=== PATIENT | female | born 1950 | race Hispanic/Latino ===

== ENCOUNTER → 2018-06-17 | Day surgery (SDC) | payer MEDICARE ==
[2018-06-16 12:04] LABS: BASOPHILS # (AUTO) 0.1 (0.0-0.1); BASOPHILS % 0.6 % (0.0-1.0); EOSINOPHILS # (AUTO) 0.1 (0.0-0.4); EOSINOPHILS % 0.7 % (0.0-6.0); HEMATOCRIT 31.2 % (34.2-44.1); HEMOGLOBIN 9.8 g/dL (12.0-16.0); LYMPHOCYTES # (AUTO) 1.1 (1.0-3.2); LYMPHOCYTES % 13.5 % (18.0-39.1); MEAN CORPUSCULAR HEMOGLOBIN 29.8 pg (28-32); MEAN CORPUSCULAR HGB CONC 31.4 g/dL (31-35); MEAN CORPUSCULAR VOLUME 94.8 fL (81-99); MONOCYTES # (AUTO) 1.1 (0.2-0.8); MONOCYTES % 12.5 % (4.4-11.3); NEUTROPHILS # (AUTO) 6.1 (2.1-6.9); NEUTROPHILS % 72.1 % (38.7-80.0); PLATELET COUNT 521 x10e3/uL (140-360); RED BLOOD COUNT 3.29 x10e6/uL (3.6-5.1); RED CELL DISTRIBUTION WIDTH 14.8 % (11.7-14.4)
[2018-06-16 12:20] LABS: INR 1.13; PROTHROMBIN TIME 13.6 seconds (11.9-14.5)
[2018-06-16 12:27] LABS: ALANINE AMINOTRANSFERASE < 6 IU/L (0-55); ALBUMIN 2.5 g/dL (3.5-5.0); ALBUMIN/GLOBULIN RATIO 0.6 (0.8-2.0); ALKALINE PHOSPHATASE 85 IU/L (40-150); ANION GAP 12.6 mmol/L (8-16); BLOOD UREA NITROGEN 11 mg/dL (7-26); BUN/CREATININE RATIO 4 (6-25); CALCIUM 9.6 mg/dL (8.4-10.2); CARBON DIOXIDE 34 mmol/L (22-29); CHLORIDE 95 mmol/L (98-107); CREATININE, SERUM 2.71 mg/dL (0.57-1.11); EST GLOMERULAR FILTRATION RATE 18 ML/MIN (60-); GLUCOSE 122 mg/dL (74-118); POTASSIUM 3.6 mmol/L (3.5-5.1); SODIUM 138 mmol/L (136-145)
[~2018-06-17] VITALS: Ht 142.2 cm; Wt 74.4 kg
[~2018-06-17] MED LIST: ACETAMINOPHEN PO; ASPIRIN81 MG PO; ATORVASTATIN CA20 MG PO; BENZOCAINE 20% SPR 60 ML CAN ONE; CEFUROXIME250 MG PO; FENTANYL CITRATE/PF 100MCG/2 ML INJ ONE; LABETALOL HCL100 MG PO; LABETALOL HCL200 MG PO; MIDAZOLAM HCL 2 MG/2 ML VIAL ONE; PREDNISONE20 MG PO; PROPOFOL IV EMULSION 10 MG/ML 20 ML VIAL IV ONE; SODIUM CHLORIDE 0.9% 1000ML 1,000 ML ONE; TRAMADOL PO; ZOFRAN ODT4 MG PO
[2018-06-17 11:30] VITALS: BP 171/120
[2018-06-17 15:30] VITALS: BP 160/83
== END | disposition home or self-care (01) ==
LOC: CATH LAB 11:04
PROVIDERS: ATTEND Internal Medicine
DX: I35.2 Nonrheumatic aortic (valve) stenosis with insufficiency (principal); I31.3 Pericardial effusion (noninflammatory); J45.909 Unspecified asthma, uncomplicated; I13.2 Hypertensive heart and chronic kidney disease with heart failure and with stage 5 chronic kidney disease, or end stage renal disease; N18.6 End stage renal disease; I50.9 Heart failure, unspecified; E66.01 Morbid (severe) obesity due to excess calories; Z01.812 Encounter for preprocedural laboratory examination; Z88.6 Allergy status to analgesic agent; Z79.82 Long term (current) use of aspirin; Z99.2 Dependence on renal dialysis; Z68.31 Body mass index [BMI] 31.0-31.9, adult; Z93.3 Colostomy status; Z82.49 Family history of ischemic heart disease and other diseases of the circulatory system
CPT/HCPCS: 36415; 80053; 85025; 85610; 93312; 93320; 93325; J2250; J7030

== ENCOUNTER 2018-07-01 07:53 | Inpatient (IN) | payer MEDICARE ==
[~2018-07-01] VITALS: Ht 152.4 cm; Wt 78.0 kg
[~2018-07-01 07:53] MED LIST changes: -BENZOCAINE 20% SPR 60 ML CAN ONE; -FENTANYL CITRATE/PF 100MCG/2 ML INJ ONE; -MIDAZOLAM HCL 2 MG/2 ML VIAL ONE; -PROPOFOL IV EMULSION 10 MG/ML 20 ML VIAL IV ONE; -SODIUM CHLORIDE 0.9% 1000ML 1,000 ML ONE
[2018-07-01] MEDS ORDERED: PLAVIX75 MG PO (08:27)
[2018-07-01] MEDS ORDERED: TYLENOL WITH C1 EACH PO (08:27)
[2018-07-01 08:52] LABS: BASOPHILS # (AUTO) 0.1 (0.0-0.1); BASOPHILS % 0.4 % (0.0-1.0); EOSINOPHILS # (AUTO) 0.2 (0.0-0.4); EOSINOPHILS % 1.5 % (0.0-6.0); HEMATOCRIT 31.5 % (34.2-44.1); HEMOGLOBIN 9.5 g/dL (12.0-16.0); LYMPHOCYTES # (AUTO) 1.4 (1.0-3.2); LYMPHOCYTES % 9.6 % (18.0-39.1); MEAN CORPUSCULAR HEMOGLOBIN 29.3 pg (28-32); MEAN CORPUSCULAR HGB CONC 30.2 g/dL (31-35); MEAN CORPUSCULAR VOLUME 97.2 fL (81-99); MONOCYTES # (AUTO) 0.9 (0.2-0.8); MONOCYTES % 6.4 % (4.4-11.3); NEUTROPHILS # (AUTO) 11.8 (2.1-6.9); NEUTROPHILS % 81.6 % (38.7-80.0); PLATELET COUNT 213 x10e3/uL (140-360); RED BLOOD COUNT 3.24 x10e6/uL (3.6-5.1); RED CELL DISTRIBUTION WIDTH 15.6 % (11.7-14.4)
[2018-07-01] MEDS ORDERED: LORATADINE 10 MG TAB PO ONE (09:00)
[2018-07-01] MEDS ORDERED: FLUTICASONE PROPIONATE NASAL SPRAY NS ONE (09:00)
--- NOTE | 2018-07-01 09:11 | Diagnostic Imaging Report ---
PROCEDURE: Frontal and lateral views of the chest. COMPARISON: None. INDICATIONS: SHORTNESS OF BREATH FINDINGS: Lines/tubes: Right IJ tunneled hemodialysis catheter with tip overlying the right atrium. Lungs: Moderate lung volumes. Perihilar and interstitial opacity, right greater than left. Patchy opacity at the right lung base. Pleura: Moderate right and small left pleural effusion. No evidence of pneumothorax. Heart and mediastinum: Enlarged cardiomediastinal silhouette. Atherosclerotic calcifications of the aortic arch. Bones: No acute bony abnormality. IMPRESSION: Pulmonary interstitial edema with moderate right and small left pleural effusions. Patchy opacity at the right lung base, likely atelectasis. Cardiomegaly. Dictated by: NANA NG M.D. on 07/01/2018 at 9:19 Electronically approved by: ANNA NG M.D. on 07/01/2018 at 9:19
[2018-07-01 09:13] LABS: ANION GAP 18.2 mmol/L (8-16); CALCIUM 9.7 mg/dL (8.4-10.2); CREATININE, SERUM 3.91 mg/dL (0.57-1.11); POTASSIUM 4.2 mmol/L (3.5-5.1)
[2018-07-01] MEDS ORDERED: ASPIRIN 81 MG CHEW TAB PO ONE (10:30)
[2018-07-01] MEDS ORDERED: VANCOMYCIN HCL 1GM/NS 250 ML BAG IV SCH (10:30)
[2018-07-01] MEDS ORDERED: SODIUM CHLORIDE FLUSH 10 ML SYR INJ PRN (10:30)
[2018-07-01] MEDS: IPRATROPIUM BROMIDE 0.02% 2.5 ML NEB NEB SCH ×3 (11:00→19:27)
[2018-07-01] MEDS: ALBUTEROL SULF 0.083% NEB SOLN 3 ML NEB NEB SCH ×3 (11:00→19:27)
[2018-07-01] MEDS: CEFEPIME HCL 1 GM VIAL IV SCH ×2 (12:40→21:09)
[2018-07-01] MEDS: FAMOTIDINE 20 MG/2 ML VIAL IV SCH ×2 (12:41→21:09)
[2018-07-01] MEDS: VANCOMYCIN 1GM/NS 250 ML 250 ML IV SCH (12:41)
[2018-07-01 13:05] LABS: CREATINE KINASE MB 0.6 ng/mL (0-5.0)
[2018-07-01] MEDS ORDERED: ACETAMINOPHEN/CODEINE 300MG - 30MG TAB PO PRN (13:45)
[2018-07-01] MEDS ORDERED: ONDANSETRON HCL 4 MG ORAL DISINTEGRATING TAB PO PRN (13:45)
[2018-07-01] MEDS ORDERED: ENOXAPARIN SOD INJ 40 MG/0.4 ML SYR SC SCH (17:00)
[2018-07-01] MEDS: LABETALOL HCL 200 MG TAB PO SCH (17:00)
--- NOTE | 2018-07-01 17:13 | Consultation ---
DATE OF CONSULTATION: July 01, 2018 RENAL CONSULTATION Thank you, Dr. Lal for the consultation. HISTORY OF PRESENT ILLNESS: Ms. Lopez is a pleasant 67-year-old female patient of mine with end-stage renal disease on hemodialysis Friday, , and Friday at [facility] facility under my care. Patient had dialysis yesterday. Apparently, patient's blood pressure started to drop during the treatment and fluid was not able to pulled as per her will. The patient subsequently came into the emergency room today because of worsening shortness of breath. Patient on chest x-ray was found to have interstitial edema with moderate right and small left pleural effusion as well as patchy right lung opacity, which could be pneumonia. No fever, no chills, no nausea, no vomiting, no diarrhea, no abdominal pain. Besides the cough, chest congestion, and shortness of breath, she had no other specific symptoms. PAST MEDICAL HISTORY: End-stage renal disease, history of hypertension, history of congestive heart failure, history of cardiomyopathy. ALLERGIES: NO KNOWN DRUG ALLERGIES. SOCIAL HISTORY: No tobacco, no alcohol use. FAMILY HISTORY: Noncontributory. REVIEW OF SYSTEMS: As per HPI, otherwise all systems were negative. MEDICATIONS: Have been reviewed per chart. PHYSICAL EXAMINATION VITAL SIGNS: As follows: Blood pressure 149/92, pulse 104, respirations 18, and patient is saturating 94-98%. HEENT: No cervical lymphadenopathy. Neck supple without masses. No increased JVD. Moist-appearing oral mucosa. SKIN: Moist with good skin turgor. CHEST: Chest wall has good expansion. No chest wall tenderness. LUNGS: Have rales at the bases bilaterally. CARDIOVASCULAR: S1, S2. No obvious gallop, rub or murmur. ABDOMEN: Soft. Positive bowel sounds. Nontender. EXTREMITIES: 1 to 2+ edema upper and lower extremity. No clubbing, no cyanosis. NEUROLOGICAL: Awake, alert, oriented x3. Grossly nonfocal exam. LABORATORY DATA: Sodium 135, potassium 4.2, chloride 95, bicarb 26, BUN is 13, creatinine is 3.91. BNP elevated at 867. Chest x-ray report shows interstitial pulmonary edema. IMPRESSION AND PLAN 1. End-stage renal disease. Continue to provide dialysis Friday, , and Friday and we will do a short treatment today for 2 hours for ultrafiltration only. Not enough fluid was able to pulled yesterday as stated above since her blood pressure started to drop during dialysis yesterday. 2. Hypertension. Blood pressure is stable. Continue to monitor closely. 3. Anemia of chronic disease, stable. Continue to monitor closely. Thank you once again for the consultation. We will follow the patient closely along with you and make further recommendations. Job#: [id number] VAS cc:DR. SAWYER LAL
[2018-07-01 17:30] VITALS: BP 155/86
[2018-07-01 18:15] VITALS: BP 155/86
[2018-07-01 18:21] VITALS: BP 155/86
--- NOTE | 2018-07-01 19:49 | History and Physical ---
CHIEF COMPLAINT: Shortness of breath. HISTORY OF PRESENT ILLNESS: This is a 67-year-old woman who presents to the [facility] with 1 day history of worsening shortness of breath particularly with exertion. Patient states her shortness of breath seems to be worsen when she is recumbent. She has a known history of diastolic heart failure. Moreover, she has a history of end-stage renal disease and undergoes hemodialysis on Tuesdays, , and Saturdays. Patient states her last hemodialysis session was 1 day prior to this admission. In the emergency room, patient was found to have a B-type natriuretic peptide at a level of 866. Patient's BUN and creatinine were 13 and 3.91 respectively. The patient's potassium was 4.2. Patient's serum bicarbonate was 26. In the emergency room, the patient was found to have a white blood cell count of 14,400 with 81% segmented neutrophils. Patient's hemoglobin was 9.5 g/dL. Patient states that just last week she underwent successful placement of a right upper extremity AV graft. Patient states the graft is functioning, and she actually received hemodialysis successfully yesterday. The patient denies any fever, chills. Patient also denies any chest pain or tightness. In the emergency room, patient had a chest x-ray performed that revealed an enlarged cardiomediastinal silhouette with pulmonary interstitial edema and moderate right and small left pleural effusion. Moreover, the x-ray revealed patchy opacity at the right lung base which was new when compared to x-ray 3 weeks ago. Also, 2 weeks ago, on June 17, 2018, patient underwent a transesophageal echocardiogram that revealed findings consistent with a diastolic heart failure with preserved left ventricular ejection fraction of 60 to 65%. No obvious valvular vegetation was appreciated. Patient was found to have moderate aortic regurgitation with mild aortic stenosis. Patient will be admitted for further evaluation and treatment. REVIEW OF SYSTEMS GENERAL: The patient has gained 10 pounds just in the last month. Denies any fever or chills. HEENT: No headaches. No visual changes. CARDIOVASCULAR/RESPIRATORY: Has worsening shortness of breath, dyspneic particularly when recumbent. Denies any chest pain or tightness. Denies any cough. GI: No nausea or constipation. : Patient urinates only minimally since she is on hemodialysis three times a week. NEUROMUSCULAR: No limb weakness or numbness. PAST MEDICAL HISTORY 1. End-stage renal disease since August 2013. 2. Malignant hypertensive heart disease. 3. Hypertension. 4. Obesity, BMI 33. 5. Anemia secondary to chronic kidney disease. 6. Chronic diastolic congestive heart failure. 7. Right retinal hemorrhage. SURGICAL HISTORY 1. Right upper extremity AV graft placement last week. 2. section 5 times. 3. Left upper extremity AV fistula placement. 4. Right subclavian hemodialysis catheter placement and subsequent removal. 5. Open cholecystectomy. 6. Total abdominal hysterectomy with bilateral salpingo-oophorectomy. 7. Sigmoid resection with diverting colostomy placement in April 2018. SOCIAL HISTORY: This woman is and disabled. Patient lives with her adult son and [id number]. No history of tobacco or alcohol use. ALLERGIES: NO KNOWN DRUG ALLERGIES. FAMILY HISTORY: Mother with hypertension. Father with type 2 diabetes mellitus. HOME MEDICATIONS 1. Ondansetron 8 mg b.i.d. p.r.n. nausea. 2. Atorvastatin 20 mg q.h.s. 3. Tramadol/acetaminophen 37.5/325 one every 6 hours for pain. 4. Labetalol 100 mg b.i.d. 5. Aspirin 81 mg a day. 6. Clopidogrel 75 mg a day. 7. Flonase 2 sprays each nostril daily. PHYSICAL EXAMINATION GENERAL: She is awake, alert, and fully oriented. She is pleasant. She does not appear to be in any respiratory distress. VITALS: Height is 5 feet 0 inches, weight 173 pounds. BMI is 33. Blood pressure 129/73, pulse is 92, respiratory rate is 22, oxygen saturation currently is 100% on 3 L of oxygen via nasal cannula, temperature 98.9. INTEGUMENT: Skin is warm and dry. No pallor or jaundice. HEENT: Anicteric sclerae. Moist mucous membranes. NECK: Supple. No evidence of jugular venous distention. CARDIOVASCULAR: Distant heart sounds. Regular rate and rhythm with a faint systolic ejection murmur. LUNGS: Diminished breath sounds at bilateral bases. ABDOMEN: Obese. EXTREMITIES: Patient has ecchymosis in the right upper arm consistent with a recent AV graft placement. NEUROLOGIC: Intact. No gross focal deficits appreciated. IMPRESSION 1. Ittfs-xg-kjiiojk diastolic congestive heart failure. 2. End-stage renal disease. 3. Right-sided pneumonia, likely. 4. Hypertensive heart disease. 5. Obesity, BMI of 33. 6. Anemia secondary to chronic disease/chronic kidney disease. PLAN 1. Blood cultures. 2. Intravenous antibiotics. 3. Repeat chest x-ray in the morning. 4. Consult nephrology since patient most likely needs hemodialysis today. 5. Consult cardiology since she has acute congestive heart failure. I spent 40 minutes in the care of the patient. Job#: [id number] LPA MTDElsi
[2018-07-01 20:00] VITALS: BP 180/90
--- NOTE | 2018-07-01 20:09 | Consultation ---
DATE OF CONSULTATION: July 01, 2018 CARDIOLOGY CONSULTATION REASON FOR CONSULTATION: Shortness of breath. HISTORY OF PRESENT ILLNESS: This is a 67-year-old woman with hypertension, end-stage renal disease, on hemodialysis, moderate aortic regurgitation and mild aortic stenosis with dilation of the ascending aorta and moderate generalized pericardial effusion, who presents with complaints of shortness of breath. The patient endorses shortness of breath beginning yesterday. She also described symptoms suggestive of orthopnea and PND overnight. She otherwise denies any chest pain, palpitations or edema. The patient presented to [facility] ER due to her shortness of breath. She had dialysis yesterday, but due to hypotension was unable to tolerate the full session, and did not get her full volume removal. Chest x-ray in the ER revealed pulmonary interstitial edema with moderate right and small left pleural effusions, patchy opacity at the right lung base, likely atelectasis and cardiomegaly were noted. REVIEW OF SYSTEMS: Negative except as per HPI. PAST MEDICAL HISTORY: End-stage renal disease, on hemodialysis, hypertension, moderate aortic regurgitation with mild aortic stenosis, small generalized pericardial effusion, dilated ascending aorta, history of sigmoid diverticulitis, and pancolitis complicated by perforation with sigmoid resection and colostomy. PAST SURGICAL HISTORY: Cholecystectomy, section times 5, hysterectomy, sigmoid resection and end-colostomy. ALLERGIES: NO KNOWN DRUG ALLERGIES. MEDICATIONS: Please see EMR. SOCIAL HISTORY: Smoked a pack a day since the age of 16, but quit in 2018. No alcohol or drugs. FAMILY HISTORY: Noncontributory to current illness. PHYSICAL EXAMINATION VITALS: Temperature 98.3 degrees, pulse 104, respiratory rate 18, blood pressure 149/92, oxygen saturation 98%. GENERAL: Obese woman in no acute distress. HEENT: Normocephalic and atraumatic. Pupils equal. No scleral icterus. NECK: Supple. No thyromegaly or cervical lymphadenopathy. No carotid bruits. LUNGS: Decreased breath sounds at the bases, otherwise clear to auscultation. No wheezes or crackles. CARDIOVASCULAR: Normal rate and regular rhythm. A 2/6 diastolic murmur is appreciated. ABDOMEN: Soft and nontender. EXTREMITIES: No edema. NEURO: Nonfocal exam. LABS: WBC 14.43, hemoglobin 9.5, hematocrit 31.5, and platelets 213,000. Sodium 135, potassium 4.2, chloride 95, CO2 26, BUN 13, creatinine 3.91. BNP 867. Troponin 0.51. IMPRESSION 1. Suspected pneumonia. 2. Volume overload. 3. End-stage renal disease, on hemodialysis. 4. Moderate aortic stenosis with mild aortic regurgitation: Preserved left ventricular systolic function with impaired left ventricular relaxation. 5. Moderate generalized pericardial effusion. 6. Dilated ascending aorta. 7. Hypertension. 8. History of sigmoid diverticulitis and pancolitis complicated by perforation with sigmoid resection and end-colostomy. RECOMMENDATIONS: Echocardiogram to re-evaluate pericardial effusion. Antibiotics per primary service. Volume removal per nephrology given hemodialysis. Continue current cardiac medications. The patient's blood cultures are pending. Once the patient has recovered, would benefit from CT of the chest for further evaluation of her ascending aorta. Thank you for this consult. We will continue to follow. Job#: [id number] BHAVIN PURCELL
[2018-07-01] MEDS: ATORVASTATIN 20 MG TAB PO SCH (21:09)
[2018-07-01 21:56] LABS: CREATINE KINASE MB 0.6 ng/mL (0-5.0)
[2018-07-01] MEDS ORDERED: SODIUM CHLORIDE 0.9% 1000ML 1,000 ML ONE (22:48)
[2018-07-02] VITALS (7 sets, daily range): BP systolic 103–150; BP diastolic 56–87
[2018-07-02] MEDS: IPRATROPIUM BROMIDE 0.02% 2.5 ML NEB NEB SCH ×4 (01:45→19:30)
[2018-07-02] MEDS: ALBUTEROL SULF 0.083% NEB SOLN 3 ML NEB NEB SCH ×4 (01:45→19:30)
[2018-07-02 05:26] LABS: BASOPHILS # (AUTO) 0.1 (0.0-0.1); BASOPHILS % 0.3 % (0.0-1.0); EOSINOPHILS # (AUTO) 0.2 (0.0-0.4); EOSINOPHILS % 1.3 % (0.0-6.0); HEMATOCRIT 29.5 % (34.2-44.1); LYMPHOCYTES % 5.4 % (18.0-39.1); MEAN CORPUSCULAR HEMOGLOBIN 28.8 pg (28-32); MEAN CORPUSCULAR HGB CONC 30.5 g/dL (31-35); MEAN CORPUSCULAR VOLUME 94.6 fL (81-99); MONOCYTES # (AUTO) 0.9 (0.2-0.8); NEUTROPHILS % 87.6 % (38.7-80.0); PLATELET COUNT 226 x10e3/uL (140-360); RED BLOOD COUNT 3.12 x10e6/uL (3.6-5.1); RED CELL DISTRIBUTION WIDTH 15.4 % (11.7-14.4)
[2018-07-02 05:59] LABS: ALBUMIN 2.6 g/dL (3.5-5.0); ALBUMIN/GLOBULIN RATIO 0.8 (0.8-2.0); ALKALINE PHOSPHATASE 82 IU/L (40-150); ANION GAP 19.8 mmol/L (8-16); BLOOD UREA NITROGEN 21 mg/dL (7-26); BUN/CREATININE RATIO 4 (6-25); CARBON DIOXIDE 26 mmol/L (22-29); CHLORIDE 94 mmol/L (98-107); CREATINE KINASE 15 IU/L (29-168); CREATININE, SERUM 4.96 mg/dL (0.57-1.11); EST GLOMERULAR FILTRATION RATE 9 ML/MIN (60-); GLUCOSE 72 mg/dL (74-118); MAGNESIUM 1.8 MG/DL (1.3-2.1); PHOSPHORUS 5.1 MG/DL (2.3-4.7); POTASSIUM 3.8 mmol/L (3.5-5.1); SODIUM 136 mmol/L (136-145)
[2018-07-02 06:00] LABS: ALANINE AMINOTRANSFERASE < 6 IU/L (0-55)
[2018-07-02] MEDS: FAMOTIDINE 20 MG/2 ML VIAL IV SCH ×2 (08:31→21:17)
[2018-07-02] MEDS: LABETALOL HCL 200 MG TAB PO SCH ×2 (08:31→17:35)
[2018-07-02] MEDS: CEFEPIME HCL 1 GM VIAL IV SCH ×2 (08:31→21:17)
[2018-07-02] MEDS: CLOPIDOGREL BISULFATE 75 MG TAB PO SCH (08:31)
[2018-07-02] MEDS: ASPIRIN 81 MG CHEW TAB PO SCH (08:31)
--- NOTE | 2018-07-02 09:12 | Progress Note ---
DATE: July 02, 2018 RENAL PROGRESS NOTE SUBJECTIVE: Followed for end-stage renal disease. Tolerating dialysis on Friday, and Friday. Had additional dialysis yesterday for 2 hours since she was fluid overloaded. The patient is doing better this morning. She is going to have another full dialysis treatment today. No nausea. No vomiting. Shortness of breath is better. OBJECTIVE VITAL SIGNS: Have been noted. Blood pressure is 142/87, pulse 118. LUNGS: Clear to auscultation bilaterally. CARDIOVASCULAR: S1 and S2. No rub. ABDOMEN: Soft and nontender. EXTREMITIES: No edema. LABS: Potassium 3.8, BUN 21, creatinine is 4.9. H and H 9 and 29.5. IMPRESSION AND PLAN 1. End-stage renal disease: Continue dialysis on Friday, and Friday per her schedule. 2. Hypertension: Blood pressure is stable. 3. Fluid overload: Largely improving with ultrafiltration on dialysis. Job#: [id number] RI cc:SAWYER LAL MD
--- NOTE | 2018-07-02 11:05 | Diagnostic Imaging Report ---
PROCEDURE: A single AP view of the chest. COMPARISON: Chest radiograph 07/01/18. INDICATIONS: FLUID OVERLOAD FINDINGS: Lines/tubes: Right IJ tunneled hemodialysis catheter with tip overlying the right atrium. Lungs: Moderate lung volumes. Perihilar and interstitial opacity, right greater than left. Patchy opacity at the right lung base. Pleura: Moderate right and small left pleural effusion. No evidence of pneumothorax. Heart and mediastinum: Enlarged cardiomediastinal silhouette. Atherosclerotic calcifications of the aortic arch. Bones: No acute bony abnormality. IMPRESSION: Pulmonary interstitial edema with moderate right and small left pleural effusions. Patchy opacity at the right lung base, likely atelectasis. Cardiomegaly. Dictated by: ANNA NG M.D. on 07/02/2018 at 11:12 Electronically approved by: ANNA NG M.D. on 07/02/2018 at 11:12
[2018-07-02] MEDS ORDERED: SODIUM CHLORIDE 0.9% 1000ML 1,000 ML ONE (11:07)
--- NOTE | 2018-07-02 11:39 | Progress Note ---
DATE: July 02, 2018 CARDIOLOGY PROGRESS NOTE SUBJECTIVE: The patient denies chest pain. She reports her shortness of breath is a little better. OBJECTIVE VITALS: Temperature 97.1 degrees, pulse 100, respiratory rate 18, blood pressure 142/87, oxygen saturation 98%. GENERAL: Obese woman in no acute distress. Awake and alert. LUNGS: Decreased breath sounds at the bases, otherwise clear to auscultation. No wheezes or crackles. CARDIOVASCULAR: Normal rate and regular rhythm. A 2/6 diastolic murmur is appreciated. ABDOMEN: Soft and nontender. EXTREMITIES: No edema. CARDIAC MEDICATIONS 1. Plavix 75 mg p.o. daily. 2. Aspirin 81 mg p.o. daily. 3. Atorvastatin 20 mg p.o. nightly. LABS: WBC 18.3, hemoglobin 9, hematocrit 29.5, platelets 226. Sodium 136, potassium 3.8, chloride 94, CO2 26, BUN 21, creatinine 4.96. BNP 662. TELEMETRY: Normal sinus rhythm. IMPRESSION 1. Suspect pneumonia. 2. Volume overload. 3. End-stage renal disease on hemodialysis. 4. Moderate aortic regurgitation with mild aortic stenosis, preserved left ventricular systolic function with impaired left ventricular relaxation. 5. Moderate generalized pericardial effusion. 6. Dilated ascending aorta. 7. Hypertension. 8. History of sigmoid diverticulitis and pancolitis complicated by perforation with sigmoid resection and end-colostomy. RECOMMENDATIONS: Echocardiogram to re-evaluate pericardial effusion has been done. Will review the images. Antibiotics per primary service. Volume removal per nephrology given dialysis. Continue current cardiac medications. Could consider initiation of ARB, given suspected ascending aortic aneurysm. Thank you for this consult. We will continue to follow. Job#: [id number]
[2018-07-02] MEDS: VANCOMYCIN 1GM/NS 250 ML 250 ML IV SCH (12:50)
[2018-07-02] MEDS: ATORVASTATIN 20 MG TAB PO SCH (21:17)
[2018-07-03] VITALS: BP 127/74
[2018-07-03] MEDS: IPRATROPIUM BROMIDE 0.02% 2.5 ML NEB NEB SCH ×2 (01:25→07:36)
[2018-07-03] MEDS: ALBUTEROL SULF 0.083% NEB SOLN 3 ML NEB NEB SCH ×2 (01:25→07:36)
[2018-07-03 04:00] VITALS: BP 125/68
[2018-07-03 06:13] LABS: BASOPHILS % 0.3 % (0.0-1.0); EOSINOPHILS # (AUTO) 0.3 (0.0-0.4); EOSINOPHILS % 2.2 % (0.0-6.0); HEMATOCRIT 27.4 % (34.2-44.1); HEMOGLOBIN 8.5 g/dL (12.0-16.0); LYMPHOCYTES # (AUTO) 0.9 (1.0-3.2); LYMPHOCYTES % 7.2 % (18.0-39.1); MEAN CORPUSCULAR HEMOGLOBIN 29.3 pg (28-32); MEAN CORPUSCULAR VOLUME 94.5 fL (81-99); MONOCYTES # (AUTO) 1.1 (0.2-0.8); MONOCYTES % 8.5 % (4.4-11.3); NEUTROPHILS # (AUTO) 10.1 (2.1-6.9); NEUTROPHILS % 81.2 % (38.7-80.0); PLATELET COUNT 247 x10e3/uL (140-360); RED CELL DISTRIBUTION WIDTH 15.7 % (11.7-14.4)
[2018-07-03 06:30] LABS: ANION GAP 19.7 mmol/L (8-16); CALCIUM 8.9 mg/dL (8.4-10.2); CREATININE, SERUM 3.65 mg/dL (0.57-1.11); POTASSIUM 3.7 mmol/L (3.5-5.1)
[2018-07-03 08:00] VITALS: BP 143/65
[2018-07-03 08:15] VITALS: BP 118/85
[2018-07-03] MEDS: CEFEPIME HCL 1 GM VIAL IV SCH (08:32)
[2018-07-03] MEDS: LABETALOL HCL 200 MG TAB PO SCH (08:33)
[2018-07-03] MEDS: FAMOTIDINE 20 MG/2 ML VIAL IV SCH (08:33)
[2018-07-03] MEDS: ASPIRIN 81 MG CHEW TAB PO SCH (09:05)
[2018-07-03] MEDS: CLOPIDOGREL BISULFATE 75 MG TAB PO SCH (09:05)
[2018-07-03] MEDS ORDERED: LEVAQUIN500 MG PO (09:11)
--- NOTE | 2018-07-03 09:39 | Discharge Summary ---
ADMITTING DIAGNOSES 1. Ujxse-nh-sdbktnx diastolic congestive heart failure. 2. End-stage renal disease. 3. Right-sided pneumonia, likely. 4. Hypertensive heart disease. 5. Obesity, body mass index of 33. 6. Anemia secondary to chronic disease/chronic kidney disease. DISCHARGE DIAGNOSES 1. Sepsis secondary to right-sided gram-negative kevin pneumonia, resolving. 2. Right-sided pneumonia, likely gram-negative kevin, resolving. 3. End-stage renal disease. 4. Ierbu-xp-fzuipgq diastolic congestive heart failure. 5. Large pericardial effusion. 6. Mild obesity, body mass index of 33. 7. Anemia secondary to chronic kidney disease/chronic disease. HOSPITAL COURSE: This is a 68-year-old woman who was initially admitted to [facility] with diagnosis of ghrdf-uc-[id number] diastolic congestive heart failure and right-sided pneumonia. During this hospitalization, it was confirmed the patient had right-sided pneumonia, likely gram-negative kevin in etiology. The patient improved clinically with intravenous antibiotics, namely cefepime and vancomycin. The patient also received hemodialysis on consecutive days during this hospital stay because of intravascular volume overload. Moreover, during this hospitalization, the patient was seen by cardiology because of acute congestive heart failure. Echocardiogram performed during this hospital stay revealed diastolic filling pattern indicating impaired relaxation with preserved left ventricular ejection fraction over 70%. However, the patient was found to have a large generalized pericardial effusion. Tentative pericardiocentesis was scheduled, but unfortunately, the patient was adamant about being discharged home. The patient states her shortness of breath has improved dramatically. The patient was informed of the risks of not proceeding with pericardiocentesis, and she states she is willing to accept these risks. Her condition on discharge was stable with an overall fair prognosis. DISCHARGE MEDICATIONS 1. Levaquin 250 mg p.o. daily for 7 days. 2. Clopidogrel 75 mg daily. 3. Aspirin 81 mg daily. 4. Labetalol 100 mg b.i.d. 5. Atorvastatin 20 mg nightly. 6. Tylenol No. 3 one every 6 hours p.r.n. pain. FOLLOWUP INSTRUCTIONS: The patient will follow up with myself, Dr. Lal, on Sunday, July 08, 2018. The patient will follow up with Dr. Camelia Brandt within 7 to 10 days. SAWYER LAL MD Job#: [id number] MH
--- NOTE | 2018-07-03 10:08 | Progress Note ---
DATE: July 03, 2018 CARDIOLOGY PROGRESS NOTE SUBJECTIVE: The patient denies chest pain or shortness of breath. She refused pericardiocentesis. OBJECTIVE VITALS: Temperature 97.7 degrees, pulse 99, respiratory rate 18, blood pressure 118/85, oxygen saturation 100%. GENERAL: Obese woman in no acute distress. Awake and alert. LUNGS: Decreased breath sounds at the bases, otherwise clear to auscultation. No wheezes or crackles. CARDIOVASCULAR: Normal rate and regular rhythm. A 2/6 diastolic murmur is appreciated. ABDOMEN: Soft and nontender. EXTREMITIES: No edema. CARDIAC MEDICATIONS 1. Labetalol 100 mg p.o. b.i.d. 2. Atorvastatin 20 mg p.o. nightly. 3. Plavix 75 mg p.o. daily. 4. Aspirin 81 mg p.o. daily. LABS: WBC 12.4, hemoglobin 8.5, hematocrit 27.4, platelets 247. Sodium 138, potassium 3.7, chloride 96, CO2 26, BUN 16, creatinine 3.65. Chest x-ray: Pulmonary interstitial edema with moderate right and small left pleural effusions. Patchy opacity at the right lung base likely atelectasis. Cardiomegaly. IMPRESSION 1. Suspect pneumonia. 2. Volume overload. 3. End-stage renal disease on hemodialysis. 4. Moderate aortic regurgitation with mild aortic stenosis, preserved left ventricular systolic function with impaired left ventricular relaxation. 5. Large generalized pericardial effusion with suggestion of tamponade physiology. 6. Dilated ascending aorta. 7. Hypertension. 8. History of sigmoid diverticulitis and pancolitis complicated by perforation with sigmoid resection and end-colostomy. RECOMMENDATIONS: Repeat echocardiogram revealed a large pericardial effusion with suggestion of tamponade physiology. Discussed recommendation for pericardiocentesis with the patient and her family. The patient refused the procedure, stating that she was tired of being in the hospital and wanted to go home. She understands that she is at risk for if she does not proceed as well as risk of chest pain, dyspnea and hypotension as well as fatigue. Continue current cardiac medications. Hold off initiation of further antihypertensive therapy given large pericardial effusion. Watch volume status closely as we will need to avoid intravascular volume depletion in her circumstances. Thank you for this consult. We will continue to follow. Job#: [id number]
--- OUTSIDE RECORDS SUMMARY | 2018-07-21 07:13 | XMS REPORT | Clinical Summary ---
Author Author [facility] Organization [facility] Address Unknown Phone Unavailable Care Team Providers Care [place] Helper Name Role Phone Vick Jurado MD PCP Allergies Active Allergy Reactions Severity Noted Date Comments Carvedilol Other High 09/26/2016 Patient reported blood in stool when taking carvedilol Current Medications Prescription Sig. Disp. Refills Start End Date Status Date PROVENTIL HFA 90 Inhale 2 Puffs by mouth 4 6.7 g 10 12/29/19 Active mcg/actuation times daily as needed for 14 inhalerIndications: Wheezing. Asthma budesonide-formoterol Inhale 2 Puffs by mouth 2 6 g 6 12/29/19 Active (SYMBICORT HFA) 160-4.5 times daily. 14 mcg/actuation inhalerIndications: Asthma loratadine (CLARITIN) 10 Take 1 tablet by mouth 90 tablet 3 11/17/19 Active mg tabletIndications: daily Prn allergies. 15 Allergic rhinitis albuterol (PROVENTIL HFA) Inhale 2 Puffs by mouth 4 6.7 g 3 09/12/20 Active 90 mcg/actuation times daily as needed for 15 inhalerIndications: Wheezing. Reactive airway disease, mild persistent, uncomplicated cyclobenzaprine Take 1 tablet by mouth 30 tablet 3 09/12/20 Active (FLEXERIL) 10 mg nightly at bedtime as 15 tabletIndications: Spasm needed for Muscle Spasms. of muscle meclizine (ANTIVERT) 25 Take 1/2 tablets by mouth 30 tablet 3 02/14/20 Active mg TabIndications: BPPV 3 times daily. 16 (benign paroxysmal positional vertigo), unspecified laterality polyethylene glycol Add lukewarm drinking 4000 mL 0 03/26/20 Active (GOLYTELY) 236-22.74-6.74 water to the fill adore (4 16 -5.86 gram oral liters) and shake. Drink solutionIndications: as directed by your Positive FIT (fecal doctor.. immunochemical test) traMADol (ULTRAM) 50 mg Take 1 tablet by mouth 30 tablet 0 09/26/20 Active tabletIndications: Injury daily as needed for Pain. 16 of left foot, sequela sodium polystyrene Take 60 mL by mouth 3 473 mL 0 02/28/20 Active (KAYEXALATE) 15-20 times weekly 17 gram/60 mL Susp oral (//Sat). suspensionIndications: ESRD (end stage renal disease) polyethylene glycol Add lukewarm drinking 4000 mL 0 05/06/20 Active (GOLYTELY) 236-22.74-6.74 water to the fill adore (4 17 -5.86 gram oral liters) and shake. Drink solutionIndications: as directed by your Hematochezia doctor.. sevelamer (RENAGEL) 400 Take 1 tablet by mouth 3 90 tablet 0 09/04/20 Active mg tabletIndications: times daily with meals In [address] [facility]. calcitriol (ROCALTROL) Take 1 capsule by mouth 30 capsule 6 12/01/19 Active 0.25 mcg daily. 18 capsuleIndications: Secondary hyperparathyroidism of renal origin labetalol (NORMODYNE) 200 Take 1/2 tablet by mouth 90 tablet 1 05/22/20 Active mg tabletIndications: 2 times daily. 18 HTN, goal below 140/90 sodium bicarbonate 650 mg Take 1 tablet by mouth 3 270 tablet 2 05/22/20 Active tabletIndications: times daily. 18 Dialysis patient atorvastatin (LIPITOR) 20 Take 1 tablet by mouth at 30 tablet 6 05/22/20 Active mg tabletIndications: bedtime nightly. 18 Dialysis patient Miscellaneous Medical by [facility]Non-Drug; Combo 1 Each 0 05/27/20 Active Supply MiscIndications: Route) route RAISED 18 Assistance needed for TOILET SEAT WITH ARMS - ambulation and movement, Dx: exertional dyspnea Requires assistance with (2/2 aortic stenosis and activities of daily regurg and diastolic living (ADL) CHF), combined with hand arthritis and ESRD, asthma. Miscellaneous Medical WHEELCHAIR WITH ELEVATED 1 Each 0 05/27/20 Active Supply MiscIndications: LEG RESTS - Dx: 18 Assistance needed for exertional dyspnea (2/2 ambulation and movement, aortic stenosis and Requires assistance with regurg and diastolic activities of daily CHF), combined with hand living (ADL) arthritis and ESRD, asthma. labetalol (TRANDATE) 200 Take 1 tablet by mouth 2 180 tablet 1 01/30/20 08/12/20 Discontin mg tabletIndications: times daily. 17 17 ued HTN, goal below 140/90 amLODIPine (NORVASC) 10 Take 1 tablet by mouth at 90 tablet 3 02/13/20 08/12/20 Discontin mg tabletIndications: bedtime nightly. 17 17 ued Diabetic nephropathy with proteinuria Calcium Carbonate (TUMS) Chew and swallow 1 tablet 60 tablet 3 02/14/20 08/26/20 Discontin 300 mg (750 mg) chewable by mouth 2 times daily 17 17 ued tabletIndications: With food. Hyperphosphatemia sodium bicarbonate 650 mg Take 1 tablet by mouth 3 270 tablet 2 02/14/20 05/22/20 Discontin tabletIndications: CKD times daily. 17 18 ued (chronic kidney disease), stage 5 calcitriol (ROCALTROL) Take 1 capsule by mouth 90 capsule 3 02/14/20 08/26/20 Discontin 0.25 mcg daily. 17 17 ued capsuleIndications: Secondary hyperparathyroidism of renal origin hydrALAZINE (APRESOLINE) Take 1 tablet by mouth 3 270 tablet 1 02/20/20 08/12/20 Discontin 25 mg tabletIndications: times daily. 17 17 ued HTN, goal below 140/90 amLODIPine (NORVASC) 10 Take 1 tablet by mouth at 90 tablet 3 08/12/20 08/26/20 Discontin mg tabletIndications: bedtime nightly. 17 17 ued Diabetic nephropathy with proteinuria hydrALAZINE (APRESOLINE) Take 1 tablet by mouth 3 270 tablet 1 08/12/20 08/26/20 Discontin 25 mg tabletIndications: times daily. 17 17 ued HTN, goal below 140/90 labetalol (TRANDATE) 200 Take 1 tablet by mouth 2 180 tablet 1 08/12/20 08/26/20 Discontin mg tabletIndications: times daily. 17 17 ued HTN, goal below 140/90 calcitriol (ROCALTROL) Take 1 capsule by mouth 90 capsule 3 08/26/20 12/01/19 Discontin 0.25 mcg daily. 17 18 ued capsuleIndications: Secondary hyperparathyroidism of renal origin calcium acetate (PHOSLO) Take 1 capsule by mouth 3 90 capsule 1 08/26/20 09/04/20 Discontin 667 mg capIndications: times daily with meals. 17 17 ued Hyperphosphatemia, Secondary hyperparathyroidism of renal origin atorvastatin (LIPITOR) 20 Take 1 tablet by mouth at 90 tablet 1 08/26/20 12/01/19 Discontin mg tabletIndications: bedtime nightly. 17 18 ued Dialysis patient labetalol (NORMODYNE) 200 Take 0.5 tablets by mouth 90 tablet 1 10/01/20 05/22/20 Discontin mg tabletIndications: 2 times daily. 17 18 ued HTN, goal below 140/90 atorvastatin (LIPITOR) 20 Take 1 tablet by mouth at 30 tablet 6 12/01/19 05/22/20 Discontin mg tabletIndications: bedtime nightly. 18 18 ued Dialysis patient Active Problems Problem Noted Date History of recent hospitalization - [place] April 2018 - SEE OVERVIEW 05/27/2018 Overview: SUMMARY OF ADMISSION TO [facility] 04/22/18 - 05/05/18: SUMMARY OF MEDICAL RECORDS FROM [facility] HOSPITALIZATION Problem Based Hospital [facility] Sepsis 2/2 Sigmoid diverticulitis [address] 04/22/18 with pancolitis and severe sigmoid diverticulitis with free fluid - pt given rocephin and flagyl Tunneled catheter was removed as possible source of sepsis and temporary catheter was placed ABX --> cefepime, flagyl, and oral vancomycin F/U Imaging 04/26/18 showed pneumoperitoneum, concern for perforated colon, and ? Abscess in pelvis and pt had sigmoid resection and colostomy 2/2 perforate distal sigmoid colon w/ fecal peritonitis PATH (04/26/18): perforated diverticulum w/ abscess formation, acute and chronic inflammation, serosal fibrinopurulent exudate, granulation tissue, and foreign body giant cell reaction consistent with diverticulitis and diverticulosis. Blood cx on 05/04 are negative ESRD on HD TTS --> fistulogram on 05/01/18 - tortuous fistula needing surgical revision - Left AV fistula still maturing New tunneled catheter placed on 05/05/18 HTN Debility - dizziness post-HD Post-op Ileus seen 04/30/18 - improved on 05/02/18 imaging Personal history of noncompliance with medical treatment, presenting 08/15/2017 hazards to health SOB (shortness of breath) 04/14/2017 Arthritis of foot 02/13/2017 Overview: 2. Mild hallux valgus deformity with mild associated degenerative change and soft tissue bunion. 3. Irregularity at the lateral base of the second proximal phalanx may represent a healed fracture deformity Macroalbuminuric diabetic nephropathy 02/01/2017 Moderate arthrosis of the hands 01/31/2017 Overview: Moderate radiocarpal, first CMC, and interphalangeal arthrosis. Mild demineralization. Chronic unhealed ulnar styloid avulsion. Blowing systolic murmur @ LUSB - ? aortic stenosis 02/28/2016 Nonrheumatic aortic valve insufficiency 02/16/2016 Overview: Tuqd-yn-tamrtsyh aortic regurgitation. Nonrheumatic aortic valve stenosis 02/16/2016 Overview: At most, mild aortic stenosis withaortic valve area of 1.6-1.9 cm2, peak AV velocity of 2.2 m/sec, mean gradient 7 mmHg. Hyperopia with astigmatism and presbyopia 10/19/2014 Glaucoma suspect 10/19/2014 NS (nuclear sclerosis) 10/19/2014 BMI 40.0-44.9, adult 01/13/2014 Vitamin D deficiency 07/23/2012 Abnormal mammogram, unspecified 05/18/2012 Anemia, unspecified 04/02/2012 Diverticulitis 09/25/2011 Allergic rhinitis 04/25/2011 HTN (hypertension) 04/20/2010 Tobacco abuse 03/26/2010 Chronic kidney disease 10/17/2008 Depression, major 09/14/2008 Asthma Obesity Diastolic dysfunction Anemia Iron deficiency Occult blood positive stool End stage renal disease ( see overview) Overview: ESRD LOCATION [facility] (MWF HD) [address] [place] [address] based on patient information about dialysis being close to [place] - [phone] [employer] Team Leader is Sarah Preciado - Phone is [phone] ===== ESRD on dialysis at present - MWF - will check sodium bicarb. Will start phos lo - bome minearl metabolism - acidosis CO2 - 15 - 16 Hyperphosphatemia Hypocalcemia Prior BUN 126 prior to HD initiation. --> BUN 50s on non-HD days. HTN - BP well controlled on only carvedilol 6.25 mg BID Rx for porcardia - will not fill as pt BP 100s systolically now - likely had elevated BP 2/2 hypervolemia which has improved with HD PhOS LO - TID 2.3 GM proteinuria BMP - d/c sodium bicarbonate. SOB (shortness of breath) on exertion Former smoker Atrophic kidney Elevated blood uric acid level Encounters Date Type Specialty Care Team Description 07/02/2018 Telephone Social Work Geovanna Rudolph Durable Medical Equipment (3-in-a commode ) 06/11/2018 Telephone Social Work Geovanna Rudolph Durable Medical Equipment (3-in-1 commode) 06/10/2018 Telephone Social Work Geovanna Rudolph Durable Medical Equipment 06/10/2018 Pharmacy Visit 06/01/2018 Telephone Social Geovanna Tillman Durable Medical Equipment (3-in-1 Commode) 05/29/2018 Office Visit Vick Espana MD End stage renal disease ( see overview) (Primary Dx); History of recent hospitalization - [place] April 2018 - SEE OVERVIEW 05/29/2018 Telephone Geovanna Garcia Durable Medical Equipment (Wheelchair) 05/29/2018 Pharmacy Visit 05/29/2018 Telephone [facility] Vick Salcedo MD Appointment Related Questions 05/28/2018 Telephone Social Work Geovanna Rudolph Durable Medical Equipment 05/27/2018 Telephone [facility] Vick Salcedo MD Hospital F/U 05/25/2018 Pharmacy Visit 05/22/2018 Office Visit Vick Espana MD Assistance needed for ambulation and movement (Primary Dx); HTN, goal below 140/90; Dialysis patient; Abnormal finding of blood chemistry ; Colon cancer screening; Requires assistance with activities of daily living (ADL) 05/22/2018 Clinical Case Social Geovanna Tillman Mgt 05/22/2018 Pharmacy Visit 12/01/2017 Office Visit Vick Espana MD Dialysis patient; Secondary hyperparathyroidism of renal origin 10/24/2017 Pharmacy Visit 10/16/2017 Pharmacy Visit 10/13/2017 Office Visit Family Vick Salcedo MD Need for vaccination (Primary Dx); Patient's intentional underdosing of medication regimen due to financial hardship; ESRD (end stage renal disease) 10/13/2017 Clinical Case Social Work Geovanna Rudolph Mgbeatriz 10/08/2017 Orders Only [facility] Vick Salcedo MD ESRD on dialysis; HTN, goal below 140/90 10/02/2017 Pharmacy Visit 10/01/2017 Ancillary Radiology Vick Jurado MD Procedure 10/01/[address] [facility] Vick Jurado MD Nonspecific abnormal results of liver function study (Primary Dx); ESRD on dialysis; Anemia of chronic disease; Other detention (current) drug therapy ; Abnormal serum enzyme level ; Chronic hepatitis ; HTN, goal below 140/90; Encounter for screening mammogram for malignant neoplasm of breast; Intentional underdosing of medication regimen by patient due to financial hardship 10/01/2017 Pharmacy Visit 10/01/2017 Telephone Galina Krishnamurthy Interpretation 09/09/2017 Nurse Only Vick Jurado MD Navarro, Maria Yolanda, LVN 09/09/2017 Orders Only [facility] Vick Salcedo MD Diabetic nephropathy with proteinuria; ESRD (end stage renal disease); History of hyperkalemia 09/08/2017 Pharmacy Visit 09/05/2017 Pharmacy Visit 08/26/2017 Office Visit [facility] Vick Salcedo MD Need for vaccination (Primary Dx); Dialysis patient; Hyperphosphatemia; Secondary hyperparathyroidism of renal origin 08/26/2017 Pharmacy Visit 08/19/2017 Orders Only [facility] Vick Salcedo MD Diabetic nephropathy with proteinuria; ESRD (end stage renal disease); History of hyperkalemia 08/13/2017 Pharmacy Visit 08/13/[address] [facility] Yoanna Thrasher RN Abnormal Labs 08/12/2017 Office Visit [facility] Vick Salcedo MD CKD (chronic kidney disease), symptom management only, unspecified stage (Primary Dx); Diabetic nephropathy with proteinuria; HTN, goal below 140/90; Encounter for screening mammogram for malignant neoplasm of breast; ESRD (end stage renal disease); History of hyperkalemia; Uremia syndrome 07/04/2017 Office Visit Podiatry Vick Jurado MD Patient left without Hailey Mtz DPM being seen (Primary Dx) 06/30/2017 Clinical Case Social Work Jose MPriscila christian, RN Mgt after 06/30/2017 Immunizations Name Dates Previously Given Next Due Herpes Zoster Vaccine In 07/14/2014 Clinic Influenza <Unspecified> 08/06/2017 Influenza Vaccine 09/26/2016, 07/18/2015, 08/25/2014 PCV 13 (Pnuemococcal 08/26/2017 (Deferred: Patient Refused - Pt states Conjugated 13 Valent) she received vaccine already. ) TDap (Tetanus Toxoid, 10/13/2017 (Deferred: Patient already had this Reduced Diphtheria Toxoid immunization - Pt to bring immunization record. ) And Acellular Pertussis, Absorbed) Td Absorbed Preservative 11/13/2006 Free 7yr/older Im In Clinic Family History Medical History Relation Name Comments Diabetes Father NO CAD, CANCER Diabetes Mother Relation Name Status Comments Brother Alive 1 Daughter Daughter Father Maternal Grandfather Maternal Grandmother Mother Alive Paternal Grandfather Paternal Grandmother Sister Alive 6 Son Alive 3 Son Alive Son Alive Social History Tobacco Use Types Packs/Day Years Used Date Former Smoker Cigarettes 2 36 Quit: 01/06/2014 Smokeless Tobacco: Never Used Tobacco Cessation: Counseling Given: No Comments: two packs a week Alcohol Use Drinks/Week oz/Week Comments No Sex Assigned at Date Recorded Not on file Last Filed Vital Signs Vital Sign Reading Time Taken Blood Pressure 118/65 05/29/2018 10:52 AM CDT Pulse 76 05/29/2018 10:52 AM CDT Temperature 37.2 C (98.9 F) 05/29/2018 10:52 AM CDT Respiratory Rate 18 05/29/2018 10:52 AM CDT Oxygen Saturation - - Inhaled Oxygen - - Concentration Weight 87.7 kg (193 lb 6.4 oz) 12/01/2017 3:13 PM [employer]CH[employer] Height 147.3 cm (4' 10") 05/22/2018 9:31 AM CDT Body Mass Index 40.42 12/01/2017 3:13 PM [employer] ARCHITECT Plan of Treatment Health Maintenance Due Date Last Done Comments IMM Pneumococcal Age 65 2017 and Up Colorectal Cancer Scrn 02/03/2018 02/03/2017, 02/22/2016 Annual (FIT/FOBT) Age 50 to 75 Breast Cancer Scrn 10/01/2018 10/01/2017, 08/08/2016, 08/09/2014, (Yearly) Additional history exists Procedures Procedure Name Priority Date/Time Associated Diagnosis Comments HEMOCCULT KIT FOR Routine 05/23/2018 Colon cancer screening SPECIMEN COLLECTION AT 11:51 PM CDT HOME BMP POC Routine 10/13/2017 Results for this 1:41 PM [employer] ARCHITECT procedure are in the results section. CALCIUM, IONIZED Routine 10/13/2017 ESRD (end stage renal Results for this 1:04 PM [employer] ARCH[employer] disease) procedure are in the results section. PHOSPHORUS Routine 10/13/2017 ESRD (end stage renal Results for this 1:04 PM [employer] ARCHITECT disease) procedure are in the results section. INTACT PTH Routine 10/13/2017 ESRD (end stage renal Results for this 1:04 PM [employer] ARCHITECT disease) procedure are in the results section. BASIC METABOLIC PANEL Routine 10/13/2017 ESRD (end stage renal Results for this 1:04 PM [employer] ARCHITECT disease) procedure are in the results section. MAMMOGRAM BILAT SCREEN Routine 10/01/2017 Encounter for screening Results for this DIGITAL 4:13 PM [employer] ARCHITECT mammogram for malignant procedure are in the neoplasm of breast results section. AFP, TUMOR MARKER Routine 10/01/2017 Chronic hepatitis Results for this 3:59 PM [employer] ARCHITECT Nonspecific abnormal procedure are in the results of liver function results section. study GGT Routine 10/01/2017 Abnormal serum enzyme Results for this 3:59 PM [employer]OPS ARCHITECT level procedure are in the Nonspecific abnormal results section. results of liver function study LIVER PROFILE Routine 10/01/2017 Nonspecific abnormal Results for this 3:59 PM [employer]OPS ARCHITECT results of liver function procedure are in the study results section. VIT D, 25-HYDROXY Routine 10/01/2017 ESRD on dialysis Results for this 3:59 PM [employer] ARCHITECT procedure are in the results section. IRON PROFILE Routine 10/01/2017 ESRD on dialysis Results for this 3:59 PM [employer]OPS ARCHITECT procedure are in the results section. VITAMIN B12 Routine 10/01/2017 Other detention (current) Results for this 3:59 PM [employer]OPS ARCHITECT drug therapy procedure are in the Anemia of chronic disease results section. RBC FOLIC ACID Routine 10/01/2017 Anemia of chronic disease Results for this 3:59 PM [employer]OPS ARCHITECT procedure are in the results section. FERRITIN Routine 10/01/2017 Anemia of chronic disease Results for this 3:59 PM [employer]OPS ARCHITECT procedure are in the results section. CBC/DIFF Routine 10/01/2017 ESRD on dialysis Results for this 3:59 PM [employer]OPS ARCHITECT procedure are in the results section. PHOSPHORUS Routine 10/01/2017 ESRD on dialysis Results for this 3:59 PM [employer]OPS ARCHITECT procedure are in the results section. INTACT PTH Routine 10/01/2017 ESRD on dialysis Results for this 3:59 PM [employer] ARCHITECT procedure are in the results section. BMP POC Routine 09/09/2017 Results for this 10:12 AM [employer] ARCHITECT procedure are in the results section. BMP POC Routine 08/26/2017 Results for this 12:05 PM [employer] ARCHITECT procedure are in the results section. BMP POC Routine 08/13/2017 Results for this 9:36 AM [employer]OPS ARCHITECT procedure are in the results section. T PROT/CREA RATIO,UR Routine 08/13/2017 Diabetic nephropathy with Results for this 9:04 AM [employer] ARCHITECT proteinuria procedure are in the CKD (chronic kidney results section. disease), symptom management only, unspecified stage UA CHEMISTRIES Routine 08/13/2017 Diabetic nephropathy with Results for this 9:03 AM [employer]OPS ARCHITECT proteinuria procedure are in the CKD (chronic kidney results section. disease), symptom management only, unspecified stage IRON PROFILE Routine 08/13/2017 Diabetic nephropathy with Results for this 8:13 AM DEVOPS ARCHITECT proteinuria procedure are in the CKD (chronic kidney results section. disease), symptom management only, unspecified stage PHOSPHORUS Routine 08/13/2017 Diabetic nephropathy with Results for this 8:13 AM DEVOPS ARCHITECT proteinuria procedure are in the CKD (chronic kidney results section. disease), symptom management only, unspecified stage VIT D, 25-HYDROXY Routine 08/13/2017 CKD (chronic kidney Results for this 8:13 AM [employer]OPS ARCHITECT disease), symptom procedure are in the management only, results section. unspecified stage MAGNESIUM Routine 08/13/2017 CKD (chronic kidney Results for this 8:13 AM [employer]OPS ARCHITECT disease), symptom procedure are in the management only, results section. unspecified stage INTACT PTH Routine 08/13/2017 CKD (chronic kidney Results for this 8:13 AM [employer]OPS ARCHITECT disease), symptom procedure are in the management only, results section. unspecified stage LIVER PROFILE Routine 08/13/2017 CKD (chronic kidney Results for this 8:13 AM [employer]OPS ARCHITECT disease), symptom procedure are in the management only, results section. unspecified stage BASIC METABOLIC PANEL Routine 08/13/2017 CKD (chronic kidney Results for this 8:13 AM [employer]OPS ARCHITECT disease), symptom procedure are in the management only, results section. unspecified stage CBC/DIFF Routine 08/13/2017 CKD (chronic kidney Results for this 8:13 AM [employer]OPS ARCHITECT disease), symptom procedure are in the management only, results section. unspecified stage TSH Routine 08/13/2017 CKD (chronic kidney Results for this 8:13 AM [employer]OPS ARCHITECT disease), symptom procedure are in the management only, results section. unspecified stage FREE T4 Routine 08/13/2017 CKD (chronic kidney Results for this 8:13 AM [employer] ARCHITECT disease), symptom procedure are in the management only, results section. unspecified stage LIPID PROFILE Routine 08/13/2017 CKD (chronic kidney Results for this 8:13 AM [employer]OPS ARCHITECT disease), symptom procedure are in the management only, results section. unspecified stage HEMOGLOBIN A1C Routine 08/13/2017 CKD (chronic kidney Results for this 8:13 AM [employer] ARCHITECT disease), symptom procedure are in the management only, results section. unspecified stage 12 LEAD EKG Routine 08/12/2017 Diabetic nephropathy with Results for this 6:21 PM [employer]OPS ARCHITECT proteinuria procedure are in the ESRD (end stage renal results section. disease) History of hyperkalemia after 06/30/2017 Results * BMP POC (10/13/2017 1:41 PM) Only the most recent of 4 results within the time period is included. TCO2 POC 25 21 - 32 mmol/L [facility] Chloride POC 101 98 - 107 mmol/L [facility] Potassium POC 4.3 3.50 - 5.10 mmol/L [facility] Sodium POC 137 136 - 145 mmol/L [facility] Glucose POC 143 (H) 74 - 106 mg/dL [facility] Urea Nitrogen POC 46 (H) 7 - 18 mg/dL [facility] Creatinine POC 7.2 (H) 0.6 - 1.3 mg/dL [facility] Ionized Calcium POC 0.98 (L) 1.15 - 1.29 mmol/L [facility] GFR, Estimated 6 mL/min/1.73 m2 [facility] GFR, Estim, Afr-Am 7 mL/min/1.73 m2 [facility] Performing Organization Address [facility] Phone Number [facility] * INTACT PTH (10/13/2017 1:04 PM) Only the most recent of 3 results within the time period is included. Intact PTH 744.00 (H) 8.7 - 77.1 pg/mL BT OUTPATIENT DRAW 2 Specimen Blood Performing Organization Address [facility] Phone Number MISYS BT OUTPATIENT DRAW 2 * PHOSPHORUS (10/13/2017 1:04 PM) Only the most recent of 3 results within the time period is included. Phosphorus 5.7 (H) 2.5 - 4.9 mg/dL BT MAIN-STATION 4 Specimen Blood Performing Organization Address [facility] Phone Number MISYS BT MAIN-STATION 4 * CALCIUM, IONIZED (10/13/2017 1:04 PM) Calcium, Ionized 1.04 (L) 1.15 - 1.29 mmol/L BT 4TH FLOOR Specimen Blood Performing Organization Address [facility] Phone Number MISYS BT 4TH FLOOR * BASIC METABOLIC PANEL (10/13/2017 1:04 PM) Only the most recent of 2 results within the time period is included. CO2 24.6 21 - 32 mmol/L BT MAIN-STATION 4 Chloride 100 98 - 107 mmol/L BT MAIN-STATION 4 Potassium 4.3 3.50 - 5.10 mmol/L BT MAIN-STATION 4 Sodium 139 136 - 145 mmol/L BT MAIN-STATION 4 Glucose 132 (H) 70 - 99 mg/dL BT MAIN-STATION 4 Urea Nitrogen 48 (H) 7 - 18 mg/dL BT MAIN-STATION 4 Creatinine 7.17 (H) 0.60 - 1.30 mg/dL BT MAIN-STATION 4 Anion Gap 14.4 BT MAIN-STATION 4 Calcium 7.9 (L) 8.50 - 10.20 mg/dL BT MAIN-STATION 4 GFR, Estimated 6 mL/min/1.73 m2 BT MAIN-STATION 4 GFR, Estim, Afr-Am 7 mL/min/1.73 m2 BT MAIN-STATION 4 Specimen Blood Performing Organization Address [facility] [facility] [place] Phone Number MISYS BT MAIN-STATION 4 * MAMMOGRAM BILAT SCREEN DIGITAL (10/01/2017 4:13 PM) Impressions Performed At IMPRESSION: BENIGN SMS There is no mammographic evidence of malignancy. A 1 year screening mammogram is recommended. This document has been electronically signed. Lucy zapata/julia:10/01/2017 16:17:54 Merchandise Carrier: Varsha Kelly Sr[employer] Second Steward, [facility] letter sent: Benign Exam Mammogram BI-RADS: 2 Benign G0202 Z12.31 Narrative Performed At #[id number] - MAMMOGRAM BILAT SCREEN DIGITAL SMS BILATERAL DIGITAL SCREENING MAMMOGRAM WITH CAD: 10/01/2017 CLINICAL: Screening for malignancy. Comparison is made to exams dated:08/09/2014, 08/08/2016 [facility], 05/14/2012 [facility], and 04/24/2012 [facility]. There are scattered fibroglandular elements in both breasts that could obscure a lesion on mammography. Current study was also evaluated with a Computer Aided Detection (CAD) system. There are benign calcifications in the right breast.There also are benign masses in the right breast. No significant masses, calcifications, or other findings are seen in either breast. There has been no significant interval change. Procedure Note Interface, Rad/Mammog In - 10/02/2017 7:18 AM DEVOPS ARCHITECT #[id number] - MAMMOGRAM BILAT SCREEN DIGITAL BILATERAL DIGITAL SCREENING MAMMOGRAM WITH CAD: 10/01/2017 CLINICAL: Screening for malignancy. Comparison is made to exams dated: 08/09/2014, 08/08/2016 [facility], 05/14/2012 [facility], and 04/24/2012 [facility]. There are scattered fibroglandular elements in both breasts that could obscure a lesion on mammography. Current study was also evaluated with a Computer Aided Detection (CAD) system. There are benign calcifications in the right breast. There also are benign masses in the right breast. No significant masses, calcifications, or other findings are seen in either breast. There has been no significant interval change. IMPRESSION IMPRESSION: BENIGN There is no mammographic evidence of malignancy. A 1 year screening mammogram is recommended. This document has been electronically signed. Lucy zapata/penrad:10/01/2017 16:17:54 Merchandise Carrier: Varsha Kelly Sr[employer] Second Steward, [facility] letter sent: Benign Exam Mammogram BI-RADS: 2 Benign G0202 Z12.31 Performing Organization Address City/State/Zipcode Phone Number SMS * AFP, TUMOR MARKER (10/01/2017 3:59 PM) AFP Tumor Mrk 2.6 <9.0 ng/mL BT OUTPATIENT DRAW 2 Specimen Blood Performing Organization Address [facility] Phone Number [facility] BT OUTPATIENT DRAW 2 * RBC FOLIC ACID (10/01/2017 3:59 PM) RBC Folic Acid 1214 LABORATORY Reference range: >498 [employer]POR[employer] OF Unit: ng/mL NICOLE Hematocrit 36.9 LABORATORY Reference range: 34.0 to 46.6 CORPORATION OF Unit: % NICOLE Folate, Hemolysate 447.9 LABORATORY Reference range: Not Estab. CORPORATION OF Unit: ng/mL NICOLE Specimen Blood bag - BLOOD Performing Organization Address [facility] Phone Number [facility] OF [address], [place] [address] NICOLE 145 * VIT D, 25-HYDROXY (10/01/2017 3:59 PM) Only the most recent of 2 results within the time period is included. Vit D, 25-Hydroxy 12.4 (L) 30 - 100 ng/mL BT DIAGNOSTIC Comment: IMMUNOLOGY Vitamin D deficiency has been defined by the [place] of Medicine and Endocrine Society guideline as a level of serum 25-OH Vitamin D less than 20 ng/mL. The Endocrine Society further defines Vitamin D insufficiency as a level between 21 and 29 ng/mL and sufficiency as a level between 30 and 100 ng/mL. Performing Organization Address [facility] Phone Number [facility] BT DIAGNOSTIC IMMUNOLOGY * FERRITIN (10/01/2017 3:59 PM) Ferritin 212.50 11.0 - 306.8 ng/mL BT OUTPATIENT DRAW 2 Specimen Blood Performing Organization Address [facility] [place] Phone Number [employer] BT OUTPATIENT DRAW 2 * VITAMIN B12 (10/01/2017 3:59 PM) Vitamin B12 308 211 - 911 pg/mL BT OUTPATIENT DRAW 2 Specimen Blood Performing Organization Address [facility] Phone Number [facility] BT OUTPATIENT DRAW 2 * LIVER PROFILE (10/01/2017 3:59 PM) Only the most recent of 2 results within the time period is included. T Protein 7.2 6.4 - 8.2 g/dL BT MAIN-STATION 4 Albumin 3.4 3.4 - 5.0 g/dL BT MAIN-STATION 4 T Bilirubin 0.3 0.2 - 1.0 mg/dL BT MAIN-STATION 4 Alk Phos 181 (H) 45 - 117 U/L BT MAIN-STATION 4 AST 18 15 - 37 U/L BT MAIN-STATION 4 ALT 17 12 - 78 U/L BT MAIN-STATION 4 D Bilirubin 0.1 0.0 - 0.2 mg/dL BT MAIN-STATION 4 Specimen Blood Performing Organization Address [facility] Phone Number MISYS BT MAIN-STATION 4 * IRON PROFILE (10/01/2017 3:59 PM) Only the most recent of 2 results within the time period is included. Iron 61 50 - 170 ug/dL BT MAIN-STATION 4 TIBC 273 250 - 450 ug/dL BT MAIN-STATION 4 % Iron Sat 22 % BT MAIN-STATION 4 Specimen Blood Performing Organization Address [facility] Phone Number MISYS BT MAIN-STATION 4 * GGT (10/01/2017 3:59 PM) GGT 13 5 - 85 U/L BT MAIN-STATION 4 Specimen Blood Performing Organization Address [facility] Phone Number MISYS BT MAIN-STATION 4 * CBC/DIFF (10/01/2017 3:59 PM) Only the most recent of 2 results within the time period is included. WBC 6.4 4.5 - 11.0 K/uL BT MAIN-STATION 2 RBC 4.03 (L) 4.20 - 5.40 M/uL BT MAIN-STATION 2 Hemoglobin 12.1 12.0 - 16.0 g/dL BT MAIN-STATION 2 Hematocrit 39.2 37.0 - 47.0 % BT MAIN-STATION 2 MCV 97 (H) 82 - 92 fL BT MAIN-STATION 2 MCH 30.0 27.0 - 32.0 pg BT MAIN-STATION 2 MCHC 30.9 (L) 32.0 - 36.0 g/dL BT MAIN-STATION 2 RDW 51.5 (H) 36.4 - 46.3 fL BT MAIN-STATION 2 Platelet 236 150 - 400 K/uL BT MAIN-STATION 2 Mean Platelet Volume 12.4 9.4 - 12.4 fL BT MAIN-STATION 2 Percent NRBC 0.0 BT MAIN-STATION 2 Absolute NRBC 0.00 BT MAIN-STATION 2 Neutrophil 59.9 34.0 - 70.0 % BT MAIN-STATION 2 Lymphocyte 26.3 20.0 - 50.0 % BT MAIN-STATION 2 Monocyte 9.1 5.0 - 12.0 % BT MAIN-STATION 2 Eosinophil 3.6 0.7 - 5.0 % BT MAIN-STATION 2 Basophil 0.8 0.1 - 1.2 % BT MAIN-STATION 2 Pct Immat Gran 0.3 0.0 - 0.5 BT MAIN-STATION 2 Neutrophil, Abs 3.81 1.56 - 6.13 K/uL BT MAIN-STATION 2 Lymphocyte, Abs 1.67 1.18 - 3.74 K/uL BT MAIN-STATION 2 Monocyte, Abs 0.58 (H) 0.24 - 0.36 K/uL BT MAIN-STATION 2 Eosinophil, Abs 0.23 0.04 - 0.36 K/uL BT MAIN-STATION 2 Basophil, Abs 0.05 0.01 - 0.08 K/uL BT MAIN-STATION 2 Absol Immat Gran 0.02 0.00 - 0.03 K/uL BT MAIN-STATION 2 Specimen Blood Performing Organization Address [facility] Phone Number [facility] BT MAIN-STATION 2 * T PROT/CREA RATIO,UR (08/13/2017 9:04 AM) Creatinine, Ur 65.8 mg/dL BT MAIN-STATION 4 T Prot, Ur 1.527 g/L BT MAIN-STATION 4 T Prot/Crea Ratio,Ur 2.32 (H) 0.0 - 0.5 BT MAIN-STATION 4 Specimen Urine Performing Organization Address [facility] Phone [facility] * UA CHEMISTRIES (08/13/2017 9:03 AM) Color Straw BT MAIN-STATION 1 Clarity Clear BT MAIN-STATION 1 Spec [place] 1.011 1.001 - 1.035 BT MAIN-STATION 1 pH 6.0 5 - 8 BT MAIN-STATION 1 Protein 2+ (A) NEG BT MAIN-STATION 1 Glucose 1+ (A) NEG BT MAIN-STATION 1 Ketone Negative NEG BT MAIN-STATION 1 Bilirubin Negative NEG BT MAIN-STATION 1 Nitrate Negative NEG BT MAIN-STATION 1 Urobilinogen <1.0 0.2 - 1.0 EU/dL BT MAIN-STATION 1 Leukocyte Negative NEG BT MAIN-STATION 1 Blood 1+ (A) NEG BT MAIN-STATION 1 RBC 2 0 - 4 /HPF BT MAIN-STATION 1 WBC 1 0 - 5 /HPF BT MAIN-STATION 1 Bacteria Few BT MAIN-STATION 1 Epithelial Cell 1 /HPF BT MAIN-STATION 1 Specimen Urine Performing Organization Address [facility] Phone Number MISYS BT MAIN-STATION 1 * HEMOGLOBIN A1C (08/13/2017 8:13 AM) Hemoglobin A1c 5.4 4.3 - 6.1 % BT DIAGNOSTIC IMMUNOLOGY Est Average Gluc 108.3 mg/dL BT DIAGNOSTIC IMMUNOLOGY Specimen Blood Performing Organization Address [facility] Phone Number MISYS BT DIAGNOSTIC IMMUNOLOGY * TSH (08/13/2017 8:13 AM) TSH 1.71 0.36 - 3.74 uIU/mL BT MAIN-STATION 3 Specimen Blood Performing Organization Address [facility] Phone Number MISYS BT MAIN-STATION 3 * FREE T4 (08/13/2017 8:13 AM) Free T4 0.97 0.89 - 1.76 ng/dl BT MAIN-STATION 3 Specimen Blood Performing Organization Address [facility] Phone Number MISYS BT MAIN-STATION 3 * MAGNESIUM (08/13/2017 8:13 AM) Magnesium 2.8 (H) 1.8 - 2.4 mg/dL BT MAIN-STATION 3 Specimen Blood Performing Organization Address [facility] Phone Number MISYS BT MAIN-STATION 3 * LIPID PROFILE (08/13/2017 8:13 AM) Cholesterol 199 <200 mg/dL BT MAIN-STATION 3 Comment: REFERENCE RANGE: Desirable: <200 mg/dL Borderline: 200-240 mg/dL High Risk: >240 mg/dL Triglyceride 154 (H) <150 mg/dL BT MAIN-STATION 3 Comment: REFERENCE RANGE: Normal: <150 mg/dL Borderline High: 150-199 mg/dL High: 200-499 mg/dL Very High: >kv=534 mg/dL HDL 53 40 - 60 mg/dL BT MAIN-STATION 3 Comment: Increased CHD risk: <40 mg/dL Decreased CHD risk: >60 mg/dL LDL 115 mg/dL BT MAIN-STATION 3 Comment: REFERENCE RANGE: Optimal: <100 mg/dL Near Optimal: 100-129 mg/dL Borderline High: 130-159 mg/dL High: 160-189 mg/dL Very High: >rx=744 mg/dL Specimen Blood Performing Organization Address [facility] Phone Number MISYS BT MAIN-STATION 3 * 12 LEAD EKG (08/12/2017 6:21 PM) 12 LEAD EKG FOR [facility] Test Date:2017-08-12 Pat Name: CHIKA LOPEZ Department: Room: Gender: Ctrs: [id number] :[id number] [id number] Requested By: Order Number: Natali lizama MD: Sultana Ya M.D. Measurements Intervals [place] Rate: 75 P:66 [place]: 164 QRS: 64 QRSD: 78 T:78 QT: 400 QTc:446 Interpretive Statements Normal sinus rhythm Normal ECG Electronically Signed On 08-12-17 19:25:53 DEVOPS ARCHITECT by Sultana Ya M.D. Performing Organization Address [facility] Phone Number [facility] after 06/30/2017
--- OUTSIDE RECORDS SUMMARY | 2018-07-21 07:18 | XMS REPORT | Clinical Summary ---
Author Author [facility] Organization [facility] Address Unknown Phone Unavailable Care Team Providers Care Manager Hris Name Role Phone Vick Jurado MD PCP [...] nightly. 18 Dialysis patient Miscellaneous Medical by [facility] [place], [place].(Non-Drug; Combo 1 Each 0 05/27/20 Active Supply [...] Noted Date History of recent hospitalization - [place] April 2018 - SEE OVERVIEW 05/27/2018 Overview: SUMMARY OF ADMISSION TO [facility] 04/22/18 - 05/05/18: SUMMARY OF MEDICAL RECORDS FROM [facility] HOSPITALIZATION Problem Based Hospital [facility] Sepsis 2/2 Sigmoid diverticulitis and [...] 02/28/2016 Nonrheumatic aortic valve insufficiency 02/16/2016 Overview: [id number] aortic regurgitation. Nonrheumatic aortic valve stenosis 02/16/2016 [...] disease ( see overview) Overview: ESRD LOCATION [facility] (MWF HD) [address] [place] [address] based on patient information about dialysis being close to [place] - [phone] Training Administrator is Sarah Preciado - Phone is [phone] ===== ESRD on dialysis at present - [...] (Primary Dx); History of recent hospitalization - [place] April 2018 - SEE OVERVIEW 05/29/2018 Telephone Geovanna Garcia Durable Medical Equipment (Wheelchair) 05/29/2018 Pharmacy Visit 05/29/2018 Telephone [facility] Vick Salcedo MD Appointment Related Questions 05/28/2018 Telephone Social Work Geovanna Rudolph Durable Medical Equipment 05/27/2018 Telephone [facility] Vick Salcedo MD Hospital F/U 05/25/2018 Pharmacy [...] Work Geovanna Rudolph Mgbeatriz 10/08/2017 Orders Only [facility] Vick Salcedo MD ESRD on dialysis; HTN, goal below 140/90 10/02/2017 Pharmacy Visit 10/01/2017 Ancillary Radiology Vick Jurado MD Procedure 10/01/[address] [facility] Vick Jurado MD Nonspecific abnormal results of liver function study (Primary Dx); ESRD on dialysis; Anemia of chronic disease; Other mcfp (current) drug therapy ; Abnormal serum enzyme level ; Chronic hepatitis ; HTN, goal below 140/90; Encounter for screening mammogram for malignant neoplasm of breast; Intentional underdosing of medication regimen by patient due to financial hardship 10/01/2017 Pharmacy Visit 10/01/2017 Telephone Galina Krishnamurthy Interpretation 09/09/2017 Nurse Only Vick Jurado MD Navarro, Maria Yolanda, LVN 09/09/2017 Orders Only [facility] Vick Salcedo MD Diabetic nephropathy with proteinuria; ESRD (end stage renal disease); History of hyperkalemia 09/08/2017 Pharmacy Visit 09/05/2017 Pharmacy Visit 08/26/2017 Office Visit [facility] Vick Salcedo MD Need for vaccination (Primary Dx); Dialysis patient; Hyperphosphatemia; Secondary hyperparathyroidism of renal origin 08/26/2017 Pharmacy Visit 08/19/2017 Orders Only [facility] Vick Salcedo MD Diabetic nephropathy with proteinuria; ESRD (end stage renal disease); History of hyperkalemia 08/13/2017 Pharmacy Visit 08/13/[address] [facility] Yoanna Thrasher RN Abnormal Labs 08/12/2017 Office Visit [facility] Vick Salcedo MD CKD (chronic kidney disease), [...] (193 lb 6.4 oz) 12/01/2017 3:13 PM LOAD OUT WORKER Height 147.3 cm (4' 10") 05/22/2018 9:31 AM CDT Body Mass Index 40.42 12/01/2017 3:13 PM LOAD OUT WORKER Plan of Treatment Health Maintenance Due Date [...] Routine 10/13/2017 Results for this 1:41 PM LOAD OUT WORKER procedure are in the results section. CALCIUM, IONIZED Routine 10/13/2017 ESRD (end stage renal Results for this 1:04 PM LOAD OUT WORKER disease) procedure are in the results section. PHOSPHORUS Routine 10/13/2017 ESRD (end stage renal Results for this 1:04 PM LOAD OUT WORKER disease) procedure are in the results section. INTACT PTH Routine 10/13/2017 ESRD (end stage renal Results for this 1:04 PM LOAD OUT WORKER disease) procedure are in the results section. BASIC METABOLIC PANEL Routine 10/13/2017 ESRD (end stage renal Results for this 1:04 PM LOAD OUT WORKER disease) procedure are in the results section. MAMMOGRAM BILAT SCREEN Routine 10/01/2017 Encounter for screening Results for this DIGITAL 4:13 PM LOAD OUT WORKER mammogram for malignant procedure are in the neoplasm of breast results section. AFP, TUMOR MARKER Routine 10/01/2017 Chronic hepatitis Results for this 3:59 PM LOAD OUT WORKER Nonspecific abnormal procedure are in the results of liver function results section. study GGT Routine 10/01/2017 Abnormal serum enzyme Results for this 3:59 PM LOAD OUT WORKER level procedure are in the Nonspecific abnormal results section. results of liver function study LIVER PROFILE Routine 10/01/2017 Nonspecific abnormal Results for this 3:59 PM LOAD OUT WORKER results of liver function procedure are in the study results section. VIT D, 25-HYDROXY Routine 10/01/2017 ESRD on dialysis Results for this 3:59 PM LOAD OUT WORKER procedure are in the results section. IRON PROFILE Routine 10/01/2017 ESRD on dialysis Results for this 3:59 PM LOAD OUT WORKER procedure are in the results section. VITAMIN B12 Routine 10/01/2017 Other mcfp (current) Results for this 3:59 PM LOAD OUT WORKER drug therapy procedure are in the Anemia of chronic disease results section. RBC FOLIC ACID Routine 10/01/2017 Anemia of chronic disease Results for this 3:59 PM LOAD OUT WORKER procedure are in the results section. FERRITIN Routine 10/01/2017 Anemia of chronic disease Results for this 3:59 PM LOAD OUT WORKER procedure are in the results section. CBC/DIFF Routine 10/01/2017 ESRD on dialysis Results for this 3:59 PM LOAD OUT WORKER procedure are in the results section. PHOSPHORUS Routine 10/01/2017 ESRD on dialysis Results for this 3:59 PM LOAD OUT WORKER procedure are in the results section. INTACT PTH Routine 10/01/2017 ESRD on dialysis Results for this 3:59 PM LOAD OUT WORKER procedure are in the results section. BMP POC Routine 09/09/2017 Results for this 10:12 AM LOAD OUT WORKER procedure are in the results section. BMP POC Routine 08/26/2017 Results for this 12:05 PM LOAD OUT WORKER procedure are in the results section. BMP POC Routine 08/13/2017 Results for this 9:36 AM LOAD OUT WORKER procedure are in the results section. T PROT/CREA RATIO,UR Routine 08/13/2017 Diabetic nephropathy with Results for this 9:04 AM LOAD OUT WORKER proteinuria procedure are in the CKD (chronic kidney results section. disease), symptom management only, unspecified stage UA CHEMISTRIES Routine 08/13/2017 Diabetic nephropathy with Results for this 9:03 AM LOAD OUT WORKER proteinuria procedure are in the CKD (chronic kidney results section. disease), symptom management only, unspecified stage IRON PROFILE Routine 08/13/2017 Diabetic nephropathy with Results for this 8:13 AM LOAD OUT WORKER proteinuria procedure are in the CKD (chronic kidney results section. disease), symptom management only, unspecified stage PHOSPHORUS Routine 08/13/2017 Diabetic nephropathy with Results for this 8:13 AM LOAD OUT WORKER proteinuria procedure are in the CKD (chronic kidney results section. disease), symptom management only, unspecified stage VIT D, 25-HYDROXY Routine 08/13/2017 CKD (chronic kidney Results for this 8:13 AM LOAD OUT WORKER disease), symptom procedure are in the management only, results section. unspecified stage MAGNESIUM Routine 08/13/2017 CKD (chronic kidney Results for this 8:13 AM LOAD OUT WORKER disease), symptom procedure are in the management only, results section. unspecified stage INTACT PTH Routine 08/13/2017 CKD (chronic kidney Results for this 8:13 AM LOAD OUT WORKER disease), symptom procedure are in the management only, results section. unspecified stage LIVER PROFILE Routine 08/13/2017 CKD (chronic kidney Results for this 8:13 AM LOAD OUT WORKER disease), symptom procedure are in the management only, results section. unspecified stage BASIC METABOLIC PANEL Routine 08/13/2017 CKD (chronic kidney Results for this 8:13 AM LOAD OUT WORKER disease), symptom procedure are in the management only, results section. unspecified stage CBC/DIFF Routine 08/13/2017 CKD (chronic kidney Results for this 8:13 AM LOAD OUT WORKER disease), symptom procedure are in the management only, results section. unspecified stage TSH Routine 08/13/2017 CKD (chronic kidney Results for this 8:13 AM LOAD OUT WORKER disease), symptom procedure are in the management only, results section. unspecified stage FREE T4 Routine 08/13/2017 CKD (chronic kidney Results for this 8:13 AM LOAD OUT WORKER disease), symptom procedure are in the management only, results section. unspecified stage LIPID PROFILE Routine 08/13/2017 CKD (chronic kidney Results for this 8:13 AM LOAD OUT WORKER disease), symptom procedure are in the management only, results section. unspecified stage HEMOGLOBIN A1C Routine 08/13/2017 CKD (chronic kidney Results for this 8:13 AM LOAD OUT WORKER disease), symptom procedure are in the management only, results section. unspecified stage 12 LEAD EKG Routine 08/12/2017 Diabetic nephropathy with Results for this 6:21 PM LOAD OUT WORKER proteinuria procedure are in the ESRD (end [...] mL/min/1.73 m2 [facility] Performing Organization Address [facility] [facility] [place] Phone Number [facility] * INTACT PTH (10/13/2017 1:04 PM) Only the most recent of 3 results within the time period is included. Intact PTH 744.00 (H) 8.7 - 77.1 pg/mL BT OUTPATIENT DRAW 2 Specimen Blood Performing Organization Address [facility]/State/[place] [facility] [place] Phone Number MISYS BT OUTPATIENT DRAW 2 * PHOSPHORUS (10/13/2017 1:04 PM) Only the most recent of 3 results within the time period is included. Phosphorus 5.7 (H) 2.5 - 4.9 mg/dL BT MAIN-STATION 4 Specimen Blood Performing Organization Address [facility] [facility] [place] Phone Number MISYS BT MAIN-STATION 4 * CALCIUM, IONIZED (10/13/2017 1:04 PM) Calcium, Ionized 1.04 (L) 1.15 - 1.29 mmol/L BT 4TH FLOOR Specimen Blood Performing Organization Address [facility] [facility] [place] Phone Number MISYS BT 4TH FLOOR * [...] MAIN-STATION 4 Specimen Blood Performing Organization Address [facility] [facility] [place] Phone Number MISYS BT MAIN-STATION 4 * MAMMOGRAM BILAT SCREEN DIGITAL (10/01/2017 4:13 PM) Impressions Performed At IMPRESSION: BENIGN SMS There is no mammographic evidence of malignancy. A 1 year screening mammogram is recommended. This document has been electronically signed. Lucy zapata/julia:10/01/2017 16:17:54 Operational Meteorologist: Varsha Kelly Sr. Religious Assistant, [facility] letter sent: Benign Exam Mammogram BI-RADS: 2 Benign G0202 Z12.31 Narrative Performed At #[id number] - MAMMOGRAM BILAT SCREEN DIGITAL SMS BILATERAL DIGITAL SCREENING MAMMOGRAM WITH CAD: 10/01/2017 CLINICAL: Screening for malignancy. Comparison is made to exams dated:08/09/2014, 08/08/2016 [facility], 05/14/2012 [facility], and 04/24/2012 [facility]. There are scattered fibroglandular elements in both [...] Interface, Rad/Mammog In - 10/02/2017 7:18 AM LOAD OUT WORKER #[id number] - MAMMOGRAM BILAT SCREEN DIGITAL BILATERAL DIGITAL SCREENING MAMMOGRAM WITH CAD: 10/01/2017 CLINICAL: Screening for malignancy. Comparison is made to exams dated: 08/09/2014, 08/08/2016 [facility], 05/14/2012 [facility], and 04/24/2012 [facility]. There are scattered fibroglandular elements in both [...] has been electronically signed. Lucy zapata/penrad:10/01/2017 16:17:54 Operational Meteorologist: Varsha Kelly Sr. Religious Assistant, [facility] letter sent: Benign Exam Mammogram BI-RADS: 2 Benign G0202 Z12.31 Performing Organization Address City/State/Zipcode Phone Number SMS * AFP, TUMOR MARKER (10/01/2017 3:59 PM) AFP Tumor Mrk 2.6 <9.0 ng/mL BT OUTPATIENT DRAW 2 Specimen Blood Performing Organization Address [facility] [facility] [place] Phone Number [employer] BT OUTPATIENT DRAW 2 * RBC FOLIC ACID (10/01/2017 3:59 PM) RBC Folic Acid 1214 LABORATORY Reference range: >498 [employer]POR[employer] OF Unit: ng/mL NICOLE Hematocrit 36.9 LABORATORY Reference range: 34.0 to 46.6 [employer]POR[employer] OF Unit: % NICOLE Folate, Hemolysate 447.9 LABORATORY Reference range: Not Estab. CORPORATION OF Unit: ng/mL NICOLE Specimen Blood bag - BLOOD Performing Organization Address [facility] [facility] [place] Phone Number [employer] [facility] [employer] OF [address] [facility], [place] [address] NICOLE 145 * VIT D, 25-HYDROXY (10/01/2017 3:59 PM) Only the most recent of 2 results within the time period is included. Vit D, 25-Hydroxy 12.4 (L) 30 - 100 ng/mL BT DIAGNOSTIC Comment: IMMUNOLOGY Vitamin D deficiency has been defined by the [place] of Medicine and Endocrine Society guideline as a level of serum 25-OH Vitamin D less than 20 ng/mL. The Endocrine Society further defines Vitamin D insufficiency as a level between 21 and 29 ng/mL and sufficiency as a level between 30 and 100 ng/mL. Performing Organization Address [facility] [facility] [place] Phone Number [employer] BT DIAGNOSTIC IMMUNOLOGY * FERRITIN (10/01/2017 3:59 PM) Ferritin 212.50 11.0 - 306.8 ng/mL BT OUTPATIENT DRAW 2 Specimen Blood Performing Organization Address [facility]/[place] [facility] [place] Phone Number [employer] BT OUTPATIENT DRAW 2 * VITAMIN B12 (10/01/2017 3:59 PM) Vitamin B12 308 211 - 911 pg/mL BT OUTPATIENT DRAW 2 Specimen Blood Performing Organization Address [facility]/[place] [facility] [place] Phone Number [employer] BT OUTPATIENT DRAW 2 * LIVER PROFILE [...] MAIN-STATION 4 Specimen Blood Performing Organization Address [facility] [facility] [place] Phone Number MISYS BT MAIN-STATION 4 * IRON PROFILE (10/01/2017 3:59 PM) Only the most recent of 2 results within the time period is included. Iron 61 50 - 170 ug/dL BT MAIN-STATION 4 TIBC 273 250 - 450 ug/dL BT MAIN-STATION 4 % Iron Sat 22 % BT MAIN-STATION 4 Specimen Blood Performing Organization Address [facility] [facility] [place] Phone Number MISYS BT MAIN-STATION 4 * GGT (10/01/2017 3:59 PM) GGT 13 5 - 85 U/L BT MAIN-STATION 4 Specimen Blood Performing Organization Address [facility] [facility] [place] Phone Number MISYS BT MAIN-STATION 4 * [...] MAIN-STATION 2 Specimen Blood Performing Organization Address [facility] [facility] [place] Phone Number [facility] BT MAIN-STATION 2 * T PROT/CREA RATIO,UR (08/13/2017 9:04 AM) Creatinine, Ur 65.8 mg/dL BT MAIN-STATION 4 T Prot, Ur 1.527 g/L BT MAIN-STATION 4 T Prot/Crea Ratio,Ur 2.32 (H) 0.0 - 0.5 BT MAIN-STATION 4 Specimen Urine Performing Organization Address [facility] [facility] [place] Phone [facility] 4 * UA CHEMISTRIES (08/13/2017 9:03 AM) Color Straw BT MAIN-STATION 1 Clarity Clear BT MAIN-STATION 1 Spec [place] 1.011 1.001 - 1.035 BT MAIN-STATION 1 [...] MAIN-STATION 1 Specimen Urine Performing Organization Address [facility] [facility] [place] Phone Number MISYS BT MAIN-STATION 1 * HEMOGLOBIN A1C (08/13/2017 8:13 AM) Hemoglobin A1c 5.4 4.3 - 6.1 % BT DIAGNOSTIC IMMUNOLOGY Est Average Gluc 108.3 mg/dL BT DIAGNOSTIC IMMUNOLOGY Specimen Blood Performing Organization Address [facility] [facility] [place] Phone Number MISYS BT DIAGNOSTIC IMMUNOLOGY * TSH (08/13/2017 8:13 AM) TSH 1.71 0.36 - 3.74 uIU/mL BT MAIN-STATION 3 Specimen Blood Performing Organization Address [facility] [facility] [place] Phone Number MISYS BT MAIN-STATION 3 * FREE T4 (08/13/2017 8:13 AM) Free T4 0.97 0.89 - 1.76 ng/dl BT MAIN-STATION 3 Specimen Blood Performing Organization Address [facility] [facility] [place] Phone Number MISYS BT MAIN-STATION 3 * MAGNESIUM (08/13/2017 8:13 AM) Magnesium 2.8 (H) 1.8 - 2.4 mg/dL BT MAIN-STATION 3 Specimen Blood Performing Organization Address [facility] [facility] [place] Phone Number MISYS BT MAIN-STATION 3 * LIPID PROFILE (08/13/2017 8:13 AM) Cholesterol 199 <200 mg/dL BT MAIN-STATION 3 Comment: REFERENCE RANGE: Desirable: <200 mg/dL Borderline: 200-240 mg/dL High Risk: >240 mg/dL Triglyceride 154 (H) <150 mg/dL BT MAIN-STATION 3 Comment: REFERENCE RANGE: Normal: <150 mg/dL Borderline High: 150-199 mg/dL High: 200-499 mg/dL Very High: >wl=511 mg/dL HDL 53 40 - 60 mg/dL BT MAIN-STATION 3 Comment: Increased CHD risk: <40 mg/dL Decreased CHD risk: >60 mg/dL LDL 115 mg/dL BT MAIN-STATION 3 Comment: REFERENCE RANGE: Optimal: <100 mg/dL Near Optimal: 100-129 mg/dL Borderline High: 130-159 mg/dL High: 160-189 mg/dL Very High: >wb=592 mg/dL Specimen Blood Performing Organization Address [facility] Phone Number MISYS BT MAIN-STATION 3 * 12 LEAD EKG (08/12/2017 6:21 PM) 12 LEAD EKG FOR [facility] Test Date:2017-08-12 Pat Name: CHIKA LOPEZ Department: Room: Gender: Leak Patcher: [id number] :[id number] [id number] Requested By: Order Number: Natali lizama MD: Sultana Ya M.D. Measurements Intervals [place] Rate: 75 P:66 MO: 164 QRS: 64 QRSD: 78 T:78 QT: 400 QTc:446 Interpretive Statements Normal sinus rhythm Normal ECG Electronically Signed On 08-12-17 19:25:53 LOAD OUT WORKER by Sultana Ya M.D. Performing Organization Address [facility] [facility] [place] Phone Number [facility] after 06/30/2017
== END 2018-07-03 09:59 | disposition home or self-care (01) | DRG 871 ==
LOC: ER 07:53 → ERHOLD 10:50 → MED/SURG2 16:29
PROVIDERS: ADMIT Internal Medicine; ATTEND Internal Medicine
PROC: 5A1D70Z Performance of Urinary Filtration, Intermittent, Less than 6 Hours Per Day (ICD-10-PCS; 2018-07-01)
PROC: 5A1D70Z Performance of Urinary Filtration, Intermittent, Less than 6 Hours Per Day (ICD-10-PCS; principal; 2018-07-02)
DX: A41.50 Gram-negative sepsis, unspecified (principal); I50.33 Acute on chronic diastolic (congestive) heart failure; N18.6 End stage renal disease; J15.6 Pneumonia due to other Gram-negative bacteria; I13.2 Hypertensive heart and chronic kidney disease with heart failure and with stage 5 chronic kidney disease, or end stage renal disease; I31.3 Pericardial effusion (noninflammatory); Z99.2 Dependence on renal dialysis; E66.9 Obesity, unspecified; Z68.33 Body mass index [BMI] 33.0-33.9, adult; D63.1 Anemia in chronic kidney disease; I35.2 Nonrheumatic aortic (valve) stenosis with insufficiency; I95.3 Hypotension of hemodialysis; H35.61 Retinal hemorrhage, right eye; Z87.891 Personal history of nicotine dependence
CPT/HCPCS: 36415; 71045; 71046; 80048; 80053; 82550; 82553; 83735; 83880; 84100; 84484; 85025; 86704; 86706; 87040; 87340; 90962; 93005; 93306; 94640; 99284; J0692; J3370; J7030

== ENCOUNTER 2018-08-01 14:48 | Emergency (ER) | payer MEDICARE ==
[~2018-08-01] VITALS: Ht 137.2 cm; Wt 78.0 kg
[~2018-08-01 14:48] MED LIST changes: +LEVAQUIN500 MG PO; +PLAVIX75 MG PO; +TYLENOL WITH C1 EACH PO
[2018-08-01] MEDS ORDERED: SODIUM CHLORIDE 0.9% 500ML 500 ML IV STA (16:35)
[2018-08-01 17:54] LABS: BASOPHILS # (AUTO) 0.1 (0.0-0.1); BASOPHILS % 0.7 % (0.0-1.0); EOSINOPHILS # (AUTO) 0.2 (0.0-0.4); EOSINOPHILS % 2.4 % (0.0-6.0); HEMATOCRIT 33.6 % (34.2-44.1); HEMOGLOBIN 10.2 g/dL (12.0-16.0); LYMPHOCYTES # (AUTO) 1.4 (1.0-3.2); LYMPHOCYTES % 20.1 % (18.0-39.1); MEAN CORPUSCULAR HEMOGLOBIN 28.8 pg (28-32); MEAN CORPUSCULAR HGB CONC 30.4 g/dL (31-35); MEAN CORPUSCULAR VOLUME 94.9 fL (81-99); MONOCYTES # (AUTO) 0.8 (0.2-0.8); NEUTROPHILS # (AUTO) 4.7 (2.1-6.9); NEUTROPHILS % 65.5 % (38.7-80.0); PLATELET COUNT 290 x10e3/uL (140-360); RED BLOOD COUNT 3.54 x10e6/uL (3.6-5.1); RED CELL DISTRIBUTION WIDTH 15.6 % (11.7-14.4)
--- NOTE | 2018-08-01 18:04 | Diagnostic Imaging Report ---
Examination: Single AP view of the chest. COMPARISON: AP chest 07/02/2018 INDICATION: Dizziness IMPRESSION: 1. Lines and Tubes: Stable right IJ tunneled hemodialysis catheter 2. Bibasilar atelectasis and small bilateral pleural effusions which are grossly unchanged since prior exam. 3. Cardiomediastinal silhouette is borderline to mildly enlarged.. Central pulmonary venous congestion. 4. No acute bony abnormalities. Signed by: Dr. Babak Fortune M.D. on 08/01/2018 6:01 PM
[2018-08-01 18:41] LABS: ALBUMIN 2.5 g/dL (3.5-5.0); ALBUMIN/GLOBULIN RATIO 0.7 (0.8-2.0); ANION GAP 14.4 mmol/L (8-16); CALCIUM 8.9 mg/dL (8.4-10.2); CREATININE, SERUM 2.31 mg/dL (0.57-1.11); POTASSIUM 3.4 mmol/L (3.5-5.1)
[2018-08-01] MEDS ORDERED: SODIUM CHLORIDE 0.9% 250ML 250 ML IV ONE (18:45)
[2018-08-01 18:48] LABS: CREATINE KINASE MB 1.2 ng/mL (0-5.0)
[2018-08-01 20:31] VITALS: BP 103/59
== END 2018-08-01 20:48 | disposition home or self-care (01) ==
LOC: ER 14:48
DX: R42 Dizziness and giddiness (principal); R53.1 Weakness; K52.9 Noninfective gastroenteritis and colitis, unspecified; I95.9 Hypotension, unspecified
CPT/HCPCS: 36415; 71045; 80053; 82550; 82553; 84484; 85025; 93005; 99284; J7040; J7050

== ENCOUNTER 2018-08-25 05:50 | Observation (INO) | payer MEDICARE ==
[~2018-08-25] VITALS: Ht 152.4 cm; Wt 70.8 kg
[2018-08-25 06:59] LABS: ALBUMIN 2.5 g/dL (3.5-5.0); ALBUMIN/GLOBULIN RATIO 0.7 (0.8-2.0); ANION GAP 16.5 mmol/L (8-16); CALCIUM 8.3 mg/dL (8.4-10.2); CREATININE, SERUM 6.5 mg/dL (0.57-1.11); POTASSIUM 4.5 mmol/L (3.5-5.1)
[2018-08-25 07:00] LABS: BASOPHILS # (AUTO) 0.1 (0.0-0.1); BASOPHILS % 0.7 % (0.0-1.0); EOSINOPHILS # (AUTO) 0.3 (0.0-0.4); EOSINOPHILS % 3.6 % (0.0-6.0); HEMATOCRIT 36.1 % (34.2-44.1); HEMOGLOBIN 10.8 g/dL (12.0-16.0); LYMPHOCYTES # (AUTO) 1.4 (1.0-3.2); LYMPHOCYTES % 19.7 % (18.0-39.1); MEAN CORPUSCULAR HEMOGLOBIN 28.4 pg (28-32); MEAN CORPUSCULAR HGB CONC 29.9 g/dL (31-35); MONOCYTES # (AUTO) 0.6 (0.2-0.8); MONOCYTES % 8.8 % (4.4-11.3); NEUTROPHILS # (AUTO) 4.8 (2.1-6.9); NEUTROPHILS % 66.9 % (38.7-80.0); PLATELET COUNT 258 x10e3/uL (140-360); RED CELL DISTRIBUTION WIDTH 14.8 % (11.7-14.4)
[2018-08-25 07:05] LABS: CREATINE KINASE MB 1.3 ng/mL (0-5.0)
--- NOTE | 2018-08-25 07:21 | Diagnostic Imaging Report ---
Examination: Single AP view of the chest. COMPARISON: 08/01/2018 INDICATION: Shortness of breath DISCUSSION: Stable right internal jugular tunneled hemodialysis catheter. Lungs remain reasonably well inflated. Interval increase in size of small-moderate right pleural effusion with adjacent lower and middle lobe airspace disease likely passive atelectasis. Left lung is grossly clear. Cardiomediastinal contour is stable. Mild pulmonary venous congestion. No acute osseous abnormality. IMPRESSION: Interval increase in size of small-moderate right pleural effusion with presumed adjacent passive atelectasis of the lower and middle lobes. Stable pulmonary venous congestion relative to 08/01/2018. Signed by: Dr. Juwan Ulloa M.D. on 08/25/2018 7:18 AM
[2018-08-25] MEDS ORDERED: DEXTROSE 50% SYRINGE 50 ML IV STA (08:05)
[2018-08-25] MEDS ORDERED: ONDANSETRON HCL INJ 2 MG/ML VIAL IV PRN (08:15)
[2018-08-25] MEDS ORDERED: SOD POLYSTYRENE SULFONATE SUSP 15 GM/60 ML BTL PO ONE (08:15)
[2018-08-25] MEDS ORDERED: SODIUM CHLORIDE FLUSH 10 ML SYR INJ PRN (08:15)
[2018-08-25] MEDS ORDERED: CALCIUM GLUCONATE 10% INJ 0.465 MEQ/ML VIAL ONE (08:28)
[2018-08-25] MEDS ORDERED: ALBUTEROL SULF 0.083% NEB SOLN 3 ML NEB NEB ONE (08:30)
[2018-08-25] MEDS ORDERED: SODIUM BICARBONATE 8.4% INJ 50 ML SYR IV ONE (08:30)
[2018-08-25] MEDS ORDERED: SODIUM CHLORIDE 0.9% 100 ML ONE (08:31)
[2018-08-25] MEDS ORDERED: CALCIUM GLUCONATE 10% INJ 9.3 MEQ in SODIUM CHLORIDE 0.9% 100 ML 100 ML IV ONE (09:00)
[2018-08-25] MEDS ORDERED: INSULIN REGULAR, HUMAN 100 UNIT/1 ML 3ML VIAL IV ONE (09:00)
[2018-08-25] MEDS ORDERED: ALBUTEROL SULF 0.083% NEB SOLN 3 ML NEB ONE (10:06)
[2018-08-25 10:45] VITALS: BP 123/58
[2018-08-25 10:56] LABS: ANION GAP 14.8 mmol/L (8-16); CALCIUM 8.3 mg/dL (8.4-10.2); CREATININE, SERUM 6.77 mg/dL (0.57-1.11); POTASSIUM 3.8 mmol/L (3.5-5.1)
[2018-08-25] MEDS ORDERED: FUROSEMIDE INJ 10 MG/ML 4 ML VIAL IV ONE (11:00)
[2018-08-25] MEDS ORDERED: DEXTROSE 50% SYRINGE 50 ML IV ONE (11:30)
[2018-08-25] MEDS ORDERED: SODIUM CHLORIDE 0.9% 1000ML 1,000 ML ONE (11:32)
--- NOTE | 2018-08-25 11:52 | History and Physical ---
CHIEF COMPLAINT: Shortness of breath. HISTORY OF PRESENT ILLNESS: This is a 68-year-old woman who presented to [facility] Emergency Room with complaints of worsening shortness of breath over the last 12 hours. The patient also complains of nasal congestion with copious amounts of postnasal drainage causing her to cough for the last 2 to 3 days prior to admission. The patient states she did receive the influenza vaccination at her primary care physician's office a month ago. Approximately a month ago, the patient underwent pericardial window surgery because of recurrent pericardial effusion. The patient denies any fever or chills. She also denies any body aches. In the emergency room, the patient was found to have a B-type natriuretic peptide level of 1115. Chest x-ray performed in the emergency room revealed stable pulmonary venous congestion compared to x-ray performed on August 01, 2018. There is increase in size of a small to moderate right pleural effusion with presumed adjacent passive atelectasis of the bilateral lower and middle lobes. The patient was found to have a white blood cell count of 7200 with 66% segmented neutrophils. Hemoglobin is 10.8 g/dL. The patient was admitted for further evaluation and treatment. REVIEW OF SYSTEMS GENERAL: Weight has been stable. No fever or chills. HEENT: No headache. No visual changes. Complains of nasal congestion with postnasal drainage that is causing her to cough. CARDIOVASCULAR/RESPIRATORY: She states that she began experiencing shortness of breath the night prior to admission, and she has been experiencing a nonproductive cough. She complains of postnasal drainage, which is worsening her cough. Denies any chest pain or tightness. GI: No nausea, vomiting, or constipation. The patient has a diverting colostomy that was placed in April 2018. : The patient states she only urinates minimally since she is on hemodialysis. NEUROMUSCULAR: No limb weakness or numbness. PAST MEDICAL HISTORY 1. End-stage renal disease since August 2018. 2. Malignant hypertensive heart disease. 3. Hypertensive heart disease. 4. Obesity, BMI 33. 5. Anemia secondary to chronic kidney disease. 6. Chronic diastolic congestive heart failure. 7. Right renal hemorrhage. 8. Recurrent pericardial effusion resulting in pericardial window in July 2018. SURGICAL HISTORY 1. Right upper extremity AV graft placement. 2. section 5 times. 3. Left upper extremity AV fistula placement. 4. Right subclavian hemodialysis catheter placement and subsequent removal. 5. Open cholecystectomy. 6. Total abdominal hysterectomy with bilateral salpingo-oophorectomy. 7. Sigmoid resection with diverting colostomy placement in April 2018. 8. Pericardial window placement in July 2018 because of recurrent pericardial effusion. SOCIAL HISTORY: This woman is a and disabled. The patient lives with her adult son and ovnwsbmf-[id number]. No history of tobacco or alcohol use. ALLERGIES: NO KNOWN DRUG ALLERGIES. FAMILY HISTORY: Mother with hypertension. Father with type-2 diabetes mellitus. HOME MEDICATIONS 1. Tylenol with Codeine 1 every 6 hours p.r.n. pain. 2. Aspirin 81 mg daily. 3. Atorvastatin 20 mg nightly. 4. Clopidogrel 75 mg daily. 5. Labetalol 100 mg b.i.d. 6. Ondansetron 8 mg b.i.d. p.r.n. nausea. PHYSICAL EXAMINATION GENERAL: She is awake, alert and fully oriented. She is very pleasant and cooperative with exam. VITALS: Blood pressure 120/70. Pulse is 106. Respiratory rate is 18. Oxygen saturation is 99% on 2 liters of oxygen. Temperature is 98.7. Height is 5 feet 0 inches. Weight is 160 pounds. INTEGUMENT: Skin is warm and dry. No pallor, jaundice or diaphoresis. HEENT: Anicteric sclerae with moist mucous membranes. Posterior pharynx is clear. NECK: Supple. CARDIOVASCULAR: Distant heart sounds. Regular rate and rhythm. An S3 gallop. LUNGS: No rales. No rhonchi. No wheezing. ABDOMEN: Benign. EXTREMITIES: No edema or deformity. NEUROLOGIC: Intact. ASSESSMENT 1. Taoqd-rf-bntvyyx diastolic congestive heart failure. 2. Upper respiratory infection. 3. Hypertensive heart disease. 4. End-stage renal disease. 5. Recent pericardial window placement. PLAN 1. Order 2D echocardiogram to assess for any pericardial effusion reaccumulation. 2. Will consult nephrology since the patient most likely will necessitate hemodialysis today. 3. Will start oral antibiotics and guaifenesin for the patient's upper respiratory infection. 4. Consult cardiology. I spent 45 minutes in the care of this patient. Job#: [id number]
[2018-08-25] MEDS: GUAIFENESIN 600 MG TAB PO SCH ×2 (12:00→21:10)
[2018-08-25] MEDS ORDERED: AMOXICILLIN/CLAVULANATE K 875 MG TAB PO SCH (12:30)
[2018-08-25 15:36] VITALS: BP 103/52
[2018-08-25] MEDS: AMOXICILLIN/CLAVULANATE K 500 MG TAB PO SCH (15:36)
[2018-08-25 16:32] LABS: CREATINE KINASE MB 1.4 ng/mL (0-5.0)
--- NOTE | 2018-08-25 17:00 | Consultation ---
DATE OF CONSULTATION: RENAL CONSULTATION Thank you for the consult. Ms. Lopez is a pleasant 68-year-old female with a past medical history significant for end-stage renal disease. She is on hemodialysis Friday//Friday at [facility] dialysis facility under my care. She has a prior history of hypertension as well. Also prior history of congestive heart failure, pericardial effusion. Patient misses several dialysis treatments and she is noncompliant with medical advice, fluid restriction, and also even when she does come for her regular dialysis treatments, the patient does not want to stay for the full treatment. Unfortunately, as a result of this, she gets hospitalized multiple times with fluid overload. She came in with shortness of breath to the emergency room, got admitted and is seen on dialysis. She is tolerating it without problems. Four liters of fluid have been removed today. She says she feels better. We will also do another treatment tomorrow for ultrafiltration only. Currently no nausea, no vomiting. No chest pain. No abdominal pain. No diarrhea. No other symptoms besides what is outlined above. PAST MEDICAL HISTORY: As outlined above. ALLERGIES: NO KNOWN DRUG ALLERGIES. SOCIAL HISTORY: No tobacco, no alcohol use. FAMILY HISTORY: Noncontributory. REVIEW OF SYSTEMS: See HPI. Otherwise, all systems negative. MEDICATIONS: Have been reviewed per chart. PHYSICAL EXAMINATION VITAL SIGNS: Blood pressure 123/58, 75 pulse, 20 respiratory rate, afebrile. HEENT AND NECK: No cervical lymphadenopathy. Neck supple without masses. No JVD. Moist-appearing oral mucosa. SKIN: Appears moist with good skin turgor. CHEST WALL: Good expansion. No chest wall tenderness. LUNGS: Have rales at the bases bilaterally. CARDIOVASCULAR: S1 and S2. No obvious gallop or murmur. ABDOMEN: Soft. Positive bowel sounds. Nontender. No organomegaly. EXTREMITIES: No evidence of lower extremity edema. No clubbing or cyanosis. NEUROLOGICALLY: Awake, alert, oriented x3. Grossly nonfocal exam. LABORATORY DATA: H&H 10.8 and 36.1. Sodium 135, potassium 4.5, BUN is 47, creatinine 6.5. IMPRESSIONS AND PLANS 1. End-stage renal disease. Patient seen during her dialysis treatment. Completed 4 hours of dialysis with ultrafiltration 4 liters. Patient will have another dialysis treatment tomorrow for ultrafiltration only for fluid overload. 2. Hypertension. Stable. Continue current medicines. 3. Fluid overload. Patient is noncompliant with medical advice and dialysis treatments. Misses dialysis treatments frequently and also she does not stay for the full treatments when she does come for dialysis. Therefore, not enough fluid is able to be pulled. In any case, we will do another treatment of dialysis tomorrow for fluid removal only. From renal standpoint, can be discharged after dialysis tomorrow. 4. Anemia of chronic disease, stable. Will continue to monitor. Thank you once again for the consult. Dr. Taran Bay will follow the patient closely and make further recommendations. Job#: [id number] TA cc:SAWYER LAL MD
--- NOTE | 2018-08-25 18:40 | Consultation ---
DATE OF CONSULTATION: August 25, 2018 REASON FOR CONSULTATION: Shortness of breath. HISTORY OF PRESENT ILLNESS: This is a 68-year-old woman who has a prior history of end-stage renal disease on hemodialysis, hypertension, obesity, anemia, chronic diastolic congestive heart failure, prior pericardial effusion, status post pericardial window last month who presented to the emergency department with shortness of breath. The patient states that over the last 24 hours she has developed progressive worsening shortness of breath, associated with some congestion, no chest pain, and swelling. The patient states that she is compliant with her hemodialysis; however, on reports of the bar machine operator production she does not complete all dialysis sessions. She was found to have pulmonary vascular congestion with pleural effusion, and was initiated on dialysis. She states that she is feeling overall better and denies any ongoing chest pain or shortness of breath. REVIEW OF SYSTEMS: A 12-point review of systems was conducted, and is negative other than stated above in the HPI. PAST MEDICAL HISTORY: Hypertension, hyperlipidemia, pericardial effusion, status post window, anemia, chronic diastolic congestive heart failure, end-stage renal disease on hemodialysis, obesity. PAST SURGICAL HISTORY: Pericardial window, colostomy, hysterectomy, cholecystectomy, AV graft, fistula, section. SOCIAL HISTORY: No illicit drug use, alcohol use of tobacco use. ALLERGIES: NO KNOWN DRUG ALLERGIES. MEDICATIONS: See medication reconciliation form. PAST FAMILY HISTORY: No premature coronary artery disease or sudden cardiac . PHYSICAL EXAMINATION VITAL SIGNS: Temperature 97.4, heart rate 75, respirations 20, blood pressure 103/52, pulse oximetry is 96% on room air. GENERAL: She is a well-appearing, obese woman lying comfortably in bed in no apparent distress. Alert and oriented x3. HEENT: Head is normocephalic, atraumatic. Eyes: Extraocular movements are intact. Conjunctivae clear. NECK: No JVD. No bruits. CARDIOVASCULAR: Regular rate and rhythm. Normal S1 and S2. No murmurs. LUNGS: Diminished breath sounds in bilateral bases. ABDOMEN: Soft, nontender. EXTREMITIES: No edema. VASCULAR; Diminished pulses. SKIN: Warm, dry, and intact. NEUROLOGIC: No focal deficits noted. Cranial nerves are grossly intact. LABORATORY DATA: All laboratory data was reviewed and showed negative troponins x2. BNP 1115. Chest x-ray showed small, moderate right pleural effusion and stable pulmonary vascular congestion. A 12-lead electrocardiogram showed sinus tachycardia, nonspecific ST-T wave abnormalities. IMPRESSION AND RECOMMENDATIONS 1. Shortness of breath. This is likely multifactorial related to her pleural effusion and pulmonary vascular congestion and need for dialysis as she appears mildly volume overloaded. Will check a 2D echocardiogram to ensure no re-accumulation of pericardial effusion. However, this is less like pericardial window. Continue dialysis sessions for volume removal. 2. Hypertension. The patient's blood pressure is well controlled on no current antihypertensive regimen. Continue to monitor closely. 3. Chronic diastolic heart failure. Will check a repeat echocardiogram. 4. End-stage renal disease on hemodialysis. Treatment per nephrology. Thank you for the consultation. Will follow along with you. Job#: [id number] FLAQUITO
[2018-08-25 20:00] VITALS: BP 113/63
[2018-08-26] VITALS (7 sets, daily range): BP systolic 110–152; BP diastolic 56–84
[2018-08-26 05:32] LABS: BASOPHILS # (AUTO) 0.1 (0.0-0.1); BASOPHILS % 0.7 % (0.0-1.0); EOSINOPHILS # (AUTO) 0.2 (0.0-0.4); EOSINOPHILS % 3.4 % (0.0-6.0); HEMATOCRIT 36.9 % (34.2-44.1); HEMOGLOBIN 11.1 g/dL (12.0-16.0); LYMPHOCYTES # (AUTO) 1.4 (1.0-3.2); LYMPHOCYTES % 19.9 % (18.0-39.1); MEAN CORPUSCULAR HEMOGLOBIN 28.1 pg (28-32); MEAN CORPUSCULAR HGB CONC 30.1 g/dL (31-35); MEAN CORPUSCULAR VOLUME 93.4 fL (81-99); MONOCYTES # (AUTO) 0.8 (0.2-0.8); MONOCYTES % 10.5 % (4.4-11.3); NEUTROPHILS # (AUTO) 4.7 (2.1-6.9); NEUTROPHILS % 65.2 % (38.7-80.0); PLATELET COUNT 267 x10e3/uL (140-360); RED BLOOD COUNT 3.95 x10e6/uL (3.6-5.1); RED CELL DISTRIBUTION WIDTH 14.9 % (11.7-14.4)
[2018-08-26 05:48] LABS: INR 0.92; PARTIAL THROMBOPLASTIN TIME 29.4 seconds (23.8-35.5); PROTHROMBIN TIME 13.2 seconds (11.9-14.5)
[2018-08-26 05:52] LABS: ALBUMIN 2.4 g/dL (3.5-5.0); ALBUMIN/GLOBULIN RATIO 0.6 (0.8-2.0); ANION GAP 14.8 mmol/L (8-16); CALCIUM 8.5 mg/dL (8.4-10.2); CHOL/HDL RATIO 2.8 (3.0-3.6); CREATININE, SERUM 4.06 mg/dL (0.57-1.11); PHOSPHORUS 4.7 MG/DL (2.3-4.7); POTASSIUM 3.8 mmol/L (3.5-5.1)
--- NOTE | 2018-08-26 06:49 | Diagnostic Imaging Report ---
EXAMINATION: CHEST SINGLE (PORTABLE) INDICATION: CHF. COMPARISON: 08/25/2018 FINDINGS: AP view TUBES and LINES: Right IJ catheter tip overlies the SVC. LUNGS/PLEURA: Lungs are well inflated. Decreased small to moderate right pleural effusion with improved aeration of the adjacent lung. Left lung remains grossly clear. Stable vascular congestion. HEART AND MEDIASTINUM: The cardiomediastinal silhouette is unremarkable. BONES AND SOFT TISSUES: No acute osseous lesion. Soft tissues are unremarkable. UPPER ABDOMEN: No free air under the diaphragm. IMPRESSION: Decreased small to moderate right pleural effusion. Signed by: DR. Ahmet Yang MD on 08/26/2018 6:46 AM
[2018-08-26] MEDS: METOPROLOL TARTRATE 25 MG TAB PO SCH ×2 (08:29→17:27)
[2018-08-26] MEDS: GUAIFENESIN 600 MG TAB PO SCH (08:29)
--- NOTE | 2018-08-26 10:36 | Discharge Summary ---
ADMITTING DIAGNOSES 1. Ubpwy-al-qcolvaq diastolic congestive heart failure. 2. Upper respiratory infection. 3. Hypertensive heart disease. 4. End-stage renal disease. DISCHARGE DIAGNOSES 1. Bsdik-hl-evzvtyk diastolic congestive heart failure, resolving. 2. Upper respiratory infection, resolving. 3. Hypertensive heart disease. 4. End-stage renal disease. HOSPITAL COURSE: This is a 68-year-old woman who was admitted to [facility] with diagnosis of sqgcz-ts-vwtfukg diastolic congestive heart failure, likely exacerbated by upper respiratory infection. She also has a history of hypertensive heart disease and end-stage renal disease. During this hospitalization, the patient underwent 2 rounds of hemodialysis. The patient was seen by her assembler sandal parts during this hospitalization, namely Dr. Tk Bay. The patient was also seen by her consolidator, namely Dr. Dejan Grimes. The patient underwent echocardiogram during this hospitalization which revealed findings consistent with diastolic dysfunction with preserved left ventricular ejection fraction of 60%. The patient underwent serial cardiac enzymes during this hospitalization, which did not reveal any evidence of acute myocardial ischemia or infarction. The patient was found to have an elevated B-type natriuretic peptide level on admission of 1115. The patient's brief hospitalization was unremarkable. Her condition on discharge was stable. During this hospitalization, she was started on oral Augmentin and guaifenesin for upper respiratory infection. DISCHARGE MEDICATIONS 1. Augmentin 500 mg 1 p.o. b.i.d. for 7 days. 2. Guaifenesin 1200 mg b.i.d. for 7 days. 3. Metoprolol tartrate 25 mg b.i.d. 4. Aspirin 81 mg daily. 5. Tylenol with Codeine 1 every 6 hours p.r.n. pain. 6. Atorvastatin 20 mg nightly. 7. Clopidogrel 75 mg daily. 8. Ondansetron 8 mg b.i.d. for nausea. The patient was told to stop labetalol since she is being prescribed metoprolol. FOLLOWUP INSTRUCTIONS: The patient was instructed to follow up with her primary care doctor, namely myself, Dr. Lal, within 1 week. The patient was instructed to not miss any hemodialysis sessions and to stay for the full session once she does undergo hemodialysis so that the optimum amount of fluid is removed. The patient was also told to limit her liquid intake to 1.5 L or less a day. The patient was also instructed to weigh herself daily and keep a written log. The patient was instructed to inform our office if her weight changes by more than 3 pounds in 1 day. SAWYER LAL MD Job#: [id number] cc: DO TK FROST MD MTDD
--- NOTE | 2018-08-26 11:05 | Progress Note ---
DATE: August 26, 2018 CARDIOLOGY PROGRESS NOTE SUBJECTIVE: Patient feels overall better. Notes improvement in her shortness of breath. No chest pain, palpitations or near syncopal symptoms. Tolerated 3.5 L volume removal yesterday evening and is scheduled for dialysis this morning. OBJECTIVE VITAL SIGNS: Temperature 96.5, heart rate 114, blood pressure 141/74, oxygen saturation 95% on room air. GENERAL: She is an elderly-appearing woman, obese, in no apparent distress. CARDIOVASCULAR: Distant heart sounds. Normal S1 and S2. Regular rate and rhythm. LUNGS: Diminished breath sounds at bilateral bases. ABDOMEN: Soft, nontender. EXTREMITIES: Trace edema. VASCULAR; Diminished pulses. NEUROLOGIC: No focal deficits noted. All laboratory and imaging data were reviewed. A 2-D echocardiogram showed normal left ventricular systolic function with an estimated ejection fraction of 60% to 65%, aortic sclerosis with mild regurgitation, thickening of the mitral valve, trivial to small pericardial effusion without evidence of tamponade and a catheter tip seen within the right atrium. Chest x-ray shows decreased small to moderate right pleural effusion. Telemetry monitoring revealed sinus tachycardia. IMPRESSION 1. Shortness of breath. 2. Hypertension. 3. Chronic diastolic heart failure. 4. Pericardial effusion. 5. Pleural effusion. 6. End-stage renal disease. 7. Sinus tachycardia. RECOMMENDATIONS: Continue volume removal with ultrafiltration during dialysis. A chest x-ray showed improvement of her pleural effusion. A 2-D echocardiogram showed a trivial to small pericardial effusion without evidence of tamponade. The patient will need to ensure adequate dialysis sessions. The patient is mildly tachycardic. Will start metoprolol for heart rate and blood pressure control. Otherwise, she is stable from a cardiovascular standpoint and may be discharged after dialysis today. Job#: [id number]
[2018-08-26] MEDS: AMOXICILLIN/CLAVULANATE K 500 MG TAB PO SCH (14:13)
[2018-08-26] MEDS ORDERED: MUCINEX DM ER1 EACH PO (16:39)
[2018-08-26] MEDS ORDERED: METOPROLOL TART25 MG PO (16:39)
[2018-08-26] MEDS ORDERED: AUGMENTIN 500-1 EACH PO (16:40)
--- NOTE | 2018-08-26 16:53 | Progress Note ---
DATE: August 26, 2018 RENAL PROGRESS NOTE SUBJECTIVE: Followed for end-stage renal disease. Tolerating dialysis Friday//Friday and today for ultrafiltration only. Patient is breathing better now. No nausea, no vomiting, no shortness of breath. OBJECTIVE VITAL SIGNS: Have been noted and are stable. LUNGS: Clear to auscultation bilaterally. CARDIOVASCULAR: S1 and S2. No rub. ABDOMEN: Soft, nontender. EXTREMITIES: No edema. LABS: Hemoglobin 11.1, potassium 3.8 and creatinine 4.06. IMPRESSION AND PLAN 1. End-stage renal disease. Continue dialysis Friday//Friday per her schedule and today for ultrafiltration only. From a renal standpoint, can be discharged after dialysis today. 2. Hypertension. Blood pressure is stable. Continue to monitor closely. 3. Anemia of chronic disease. Stable. From a renal standpoint, patient can be discharged after dialysis today. Patient seen on dialysis treatment. She is tolerating without problems. Thank you once again. Job#: [id number] EV
== END 2018-08-26 19:30 | disposition home or self-care (01) ==
LOC: ER 05:50 → INTOOBSV 08:10 → ERHOLD 08:10 → IMCU 10:52
PROVIDERS: ADMIT Internal Medicine; ATTEND Internal Medicine
DX: I13.2 Hypertensive heart and chronic kidney disease with heart failure and with stage 5 chronic kidney disease, or end stage renal disease (principal); N18.6 End stage renal disease; I50.33 Acute on chronic diastolic (congestive) heart failure; Z99.2 Dependence on renal dialysis; E87.5 Hyperkalemia; Z83.3 Family history of diabetes mellitus; Z82.49 Family history of ischemic heart disease and other diseases of the circulatory system; E66.9 Obesity, unspecified; Z68.33 Body mass index [BMI] 33.0-33.9, adult; D63.1 Anemia in chronic kidney disease; J06.9 Acute upper respiratory infection, unspecified; Z91.19 Patient's noncompliance with other medical treatment and regimen; I31.3 Pericardial effusion (noninflammatory); R00.0 Tachycardia, unspecified
CPT/HCPCS: 36415 ×2; 71045 ×2; 80048; 80053 ×2; 80061; 82550; 82553; 83735; 83880 ×2; 84100; 84484; 85025 ×2; 85610; 85730; 86704; 87340; 87400; 90935; 93005; 93306; 94640; 99284; G0378 ×2; J0610; J1817; J1940; J7030; J7050; J7799; 90962

== ENCOUNTER → 2019-01-08 | Day surgery (SDC) | payer MEDICARE ==
[2019-01-07 10:57] LABS: BASOPHILS % 0.4 % (0.0-1.0); EOSINOPHILS # (AUTO) 0.2 (0.0-0.4); EOSINOPHILS % 2.4 % (0.0-6.0); HEMATOCRIT 33.4 % (34.2-44.1); HEMOGLOBIN 10.4 g/dL (12.0-16.0); LYMPHOCYTES # (AUTO) 0.9 (1.0-3.2); LYMPHOCYTES % 12.1 % (18.0-39.1); MEAN CORPUSCULAR HEMOGLOBIN 29.6 pg (28-32); MEAN CORPUSCULAR HGB CONC 31.1 g/dL (31-35); MEAN CORPUSCULAR VOLUME 95.2 fL (81-99); MONOCYTES # (AUTO) 0.5 (0.2-0.8); MONOCYTES % 6.9 % (4.4-11.3); NEUTROPHILS # (AUTO) 5.9 (2.1-6.9); NEUTROPHILS % 77.9 % (38.7-80.0); PLATELET COUNT 259 x10e3/uL (140-360); RED BLOOD COUNT 3.51 x10e6/uL (3.6-5.1); RED CELL DISTRIBUTION WIDTH 14.5 % (11.7-14.4)
[2019-01-07 11:01] LABS: INR 0.83; PROTHROMBIN TIME 11.9 seconds (11.9-14.5)
[2019-01-07 11:02] LABS: PARTIAL THROMBOPLASTIN TIME 29.8 seconds (23.8-35.5)
--- NOTE | 2019-01-07 11:07 | Diagnostic Imaging Report ---
EXAMINATION: PA and lateral views of the chest. COMPARISON: Portable chest 08/26/2018 CLINICAL HISTORY: Preop finger symptoms DISCUSSION: Lines/tubes: Unchanged right sided IJ catheter, with tip projecting in the right atrium. Lungs: The lungs are well inflated. Stable 6 mm calcified granuloma in the right midlung. Rounded opacity in the posterior left lower lung. There is no evidence of pulmonary edema. Pleura: Small bilateral pleural effusions. Heart and mediastinum: Enlarged cardiac silhouette, stable Pulmonary vasculature is normal. Bones and soft tissues: No acute bony abnormalities. Degenerative changes in the thoracic spine IMPRESSION: 1. Rounded opacity in the posterior left lower lobe with associated blunting of the left posterior costophrenic sulcus is felt to represent pleural effusion and associated atelectasis. Chest CT may be obtained for further evaluation. 2. Small right pleural effusion. Signed by: Dr. Babak Fortune M.D. on 01/07/2019 11:03 AM
[2019-01-07 12:16] LABS: ANION GAP 14.3 mmol/L (8-16); CALCIUM 9.3 mg/dL (8.4-10.2); CREATININE, SERUM 2.95 mg/dL (0.57-1.11); POTASSIUM 4.3 mmol/L (3.5-5.1)
[~2019-01-08] MED LIST changes: +AUGMENTIN 500-1 EACH PO; +BUPIVACAINE HCL 0.5% INJ 30 ML VIAL INJ ONE; +CEFAZOLIN SOD 1 GM/NS 50ML 50 ML IV ONE; +FENTANYL CITRATE/PF 100MCG/2 ML INJ ONE; +LIDOCAINE 1% W/EPINEPHRINE 20 ML VIAL ONE; +LIDOCAINE HCL 2% LOCAL INJ 5 ML SDV VIAL INJ ONE; +METOPROLOL TART25 MG PO; +MIDAZOLAM HCL 2 MG/2 ML VIAL ONE; +MUCINEX DM ER1 EACH PO; +MUPIROCIN 2% OINT 22 GM TUBE ONE; +PROPOFOL IV EMULSION 10 MG/ML 20 ML VIAL ONE; +SODIUM CHLORIDE 0.9% 1000ML 0 ML ONE; +SODIUM CHLORIDE 0.9% 500ML 500 ML ONE
[2019-01-08 09:16] VITALS: BP 143/73
--- NOTE | 2019-01-08 16:06 | Operative Report ---
DATE OF PROCEDURE: 01/08/2019 SURGEON: Kevin Valencia MD PREOPERATIVE DIAGNOSIS: Stenosing tenosynovitis, right long finger. POSTOPERATIVE DIAGNOSIS: Stenosing tenosynovitis, right long finger. PROCEDURE: Right long finger tenovaginotomy. ANESTHESIA: MAC/local. HISTORY: The patient is a 68-year-old xfpgu-tczp-nuuzwyon female with end-stage renal disease, maintained on hemodialysis. She has very severe stenosing tenosynovitis of the right long finger. She has vascular access grafts in both upper extremities. For this reason, the procedure will be done under MAC/local without the use of a tourniquet. The risks, benefits, alternatives of surgery were discussed with the patient. She is prepared to undergo the procedure as outlined. PROCEDURE IN DETAIL: The patient was marked preoperatively in the holding area. She is brought to the operating theater, and after the induction of adequate IV sedation, she is prepped and draped in a supine position and a time-out was performed. An oblique incision was marked out over the A1 zaheer of the right long finger. 1% Xylocaine with epinephrine is instilled into the soft tissues. Approximately 10 mL used. After waiting an appropriate amount of time for maximum vasoconstrictive effect, the incision is made through the skin and subcutaneous tissues and bleeding was controlled using the bipolar cautery. The dissection continued through the subcutaneous tissue directly onto the A1 zaheer. The zaheer was noted to be markedly thickened. It is incised longitudinally with a scalpel and the entire width of the zaheer is sectioned. At that point, the flexor tendons were placed through range of motion. There is noted to be good gliding and no locking. The wound is irrigated with bacteriostatic saline and closed with a five-0 nylon in an interrupted horizontal mattress fashion. Bactroban ointment, Xeroform gauze, and a sterile dressing are applied. The patient tolerated the procedure well, brought to recovery room in satisfactory condition, and discharged with a postoperative instruction sheet as well as a followup appointment. Kevin Valencia MD ER/MODL /[id number]
== END | disposition home or self-care (01) ==
LOC: OR 05:08
PROVIDERS: ATTEND Plastic Surgery
DX: M65.331 Trigger finger, right middle finger (principal); N18.6 End stage renal disease; Z01.810 Encounter for preprocedural cardiovascular examination; Z01.812 Encounter for preprocedural laboratory examination; Z01.818 Encounter for other preprocedural examination; Z99.2 Dependence on renal dialysis
CPT/HCPCS: 26055; 36415; 71046; 80048; 85025; 85610; 85730; 93005; J0690; J2001; J2250; J2704; J7040; J7030

== ENCOUNTER 2019-01-28 10:32 | Emergency (ER) | payer MEDICARE ==
[~2019-01-28] VITALS: Ht 175.3 cm; Wt 70.8 kg
[~2019-01-28 10:32] MED LIST changes: -BUPIVACAINE HCL 0.5% INJ 30 ML VIAL INJ ONE; -CEFAZOLIN SOD 1 GM/NS 50ML 50 ML IV ONE; -FENTANYL CITRATE/PF 100MCG/2 ML INJ ONE; -LIDOCAINE 1% W/EPINEPHRINE 20 ML VIAL ONE; -LIDOCAINE HCL 2% LOCAL INJ 5 ML SDV VIAL INJ ONE; -MIDAZOLAM HCL 2 MG/2 ML VIAL ONE; -MUPIROCIN 2% OINT 22 GM TUBE ONE; -PROPOFOL IV EMULSION 10 MG/ML 20 ML VIAL ONE; -SODIUM CHLORIDE 0.9% 1000ML 0 ML ONE; -SODIUM CHLORIDE 0.9% 500ML 500 ML ONE
[2019-01-28 11:30] LABS: BILIRUBIN,URINE NEGATIVE (NEGATIVE); CLARITY,URINE SL CLOUDY (CLEAR); COLOR,URINE YELLOW (YELLOW); KETONES,URINE NEGATIVE (NEGATIVE); LEUKOCYTE ESTERASE ,URINE NEGATIVE (NEGATIVE); NITRITE,URINE NEGATIVE (NEGATIVE); PROTEIN,URINE DIPSTICK 1+ (NEGATIVE); URINE UROBILINOGEN 0.2 mg/dL (0.2 - 1)
[2019-01-28 11:38] LABS: BASOPHILS % 0.4 % (0.0-1.0); EOSINOPHILS # (AUTO) 0.3 (0.0-0.4); EOSINOPHILS % 4.2 % (0.0-6.0); HEMATOCRIT 30.8 % (34.2-44.1); HEMOGLOBIN 9.5 g/dL (12.0-16.0); LYMPHOCYTES # (AUTO) 1.2 (1.0-3.2); LYMPHOCYTES % 16.8 % (18.0-39.1); MEAN CORPUSCULAR HEMOGLOBIN 29.8 pg (28-32); MEAN CORPUSCULAR HGB CONC 30.8 g/dL (31-35); MEAN CORPUSCULAR VOLUME 96.6 fL (81-99); MONOCYTES # (AUTO) 0.7 (0.2-0.8); MONOCYTES % 10.7 % (4.4-11.3); NEUTROPHILS # (AUTO) 4.6 (2.1-6.9); NEUTROPHILS % 67.6 % (38.7-80.0); PLATELET COUNT 195 x10e3/uL (140-360); RED BLOOD COUNT 3.19 x10e6/uL (3.6-5.1); RED CELL DISTRIBUTION WIDTH 14.1 % (11.7-14.4)
[2019-01-28 11:41] LABS: BACTERIA,URINE FEW /HPF; EPITHELIAL CELLS,URINE MANY /LPF; RBC,URINE 0-5 /HPF (0-5); WBC,URINE (MAN) 0-5 /HPF (0-5)
[2019-01-28 11:53] LABS: ALBUMIN 2.9 g/dL (3.5-5.0); ALBUMIN/GLOBULIN RATIO 0.7 (0.8-2.0); ANION GAP 19.2 mmol/L (8-16); CALCIUM 8.8 mg/dL (8.4-10.2); CREATININE, SERUM 6.97 mg/dL (0.57-1.11)
[2019-01-28 11:55] LABS: POTASSIUM 5.2 mmol/L (3.5-5.1)
--- NOTE | 2019-01-28 11:57 | Diagnostic Imaging Report ---
EXAMINATION: CHEST SINGLE (PORTABLE) INDICATION: Back peterson, chest pain. COMPARISON: Chest radiograph 01/07/2019. FINDINGS: TUBES and LINES: Right IJ tunneled hemodialysis catheter terminates in the right atrium. LUNGS: The lungs are moderately inflated. There is central vascular congestion without pulmonary edema. Mild patchy bibasilar opacities, likely atelectasis. No evidence of lobar pneumonia. Unchanged appearance of calcified granuloma in the right midlung. PLEURA: No pleural effusion or pneumothorax. HEART AND MEDIASTINUM: The cardiomediastinal silhouette is mildly enlarged. BONES AND SOFT TISSUES: No acute osseous abnormality. UPPER ABDOMEN: No free air under the diaphragm. IMPRESSION: No acute radiographic abnormality. Given the previously noted opacity in the posterior left lower lobe on the prior lateral chest radiograph from 01/07/2019, a follow-up radiograph with lateral view or a nonurgent chest CT is suggested. Signed by: Dr. Nathan Sandra MD on 01/28/2019 11:53 AM
[2019-01-28 11:59] LABS: CREATINE KINASE MB 0.7 ng/mL (0-5.0)
[2019-01-28] MEDS ORDERED: NITROGLYCERIN 2% OINT 1 GM PKT TOP ONE (12:15)
[2019-01-28] MEDS ORDERED: ACETAMINOPHEN 325 MG TAB PO ONE (12:15)
[2019-01-28 15:59] LABS: CREATINE KINASE MB 0.6 ng/mL (0-5.0)
[2019-01-28] MEDS ORDERED: SOD POLYSTYRENE SULFONATE SUSP 15 GM/60 ML BTL PO ONE (16:00)
[2019-01-28 16:15] VITALS: BP 167/74
== END 2019-01-28 16:09 | disposition home or self-care (01) ==
LOC: ER 10:32
DX: R07.89 Other chest pain (principal); R06.02 Shortness of breath; I12.0 Hypertensive chronic kidney disease with stage 5 chronic kidney disease or end stage renal disease; N18.6 End stage renal disease; Z99.2 Dependence on renal dialysis
CPT/HCPCS: 36415; 71045; 80053; 81001; 82550; 82553; 83690; 84484; 85025; 93005; 99284

== ENCOUNTER 2019-05-10 13:18 | Emergency (ER) | payer MEDICARE ==
[~2019-05-10 13:18] MED LIST changes: +AMLODIPINE BESY10 MG PO; +ZOFRAN4 MG PO
== END 2019-05-10 14:25 | disposition short-term general hospital (02) ==
LOC: ER 13:18
DX: R06.00 Dyspnea, unspecified (principal)

== ENCOUNTER 2019-05-26 22:07 | Emergency (ER) | payer MEDICARE ==
[~2019-05-26] VITALS: Ht 152.4 cm; Wt 69.4 kg
[2019-05-26 23:04] LABS: BASOPHILS % 0.5 % (0.0-1.0); EOSINOPHILS # (AUTO) 0.7 (0.0-0.4); EOSINOPHILS % 8.4 % (0.0-6.0); HEMATOCRIT 32.8 % (34.2-44.1); HEMOGLOBIN 10.4 g/dL (12.0-16.0); LYMPHOCYTES # (AUTO) 1.2 (1.0-3.2); LYMPHOCYTES % 15.6 % (18.0-39.1); MEAN CORPUSCULAR HEMOGLOBIN 29.3 pg (28-32); MEAN CORPUSCULAR HGB CONC 31.7 g/dL (31-35); MEAN CORPUSCULAR VOLUME 92.4 fL (81-99); MONOCYTES # (AUTO) 0.6 (0.2-0.8); NEUTROPHILS # (AUTO) 5.3 (2.1-6.9); NEUTROPHILS % 67.1 % (38.7-80.0); PLATELET COUNT 182 x10e3/uL (140-360); RED BLOOD COUNT 3.55 x10e6/uL (3.6-5.1); RED CELL DISTRIBUTION WIDTH 14.1 % (11.7-14.4)
[2019-05-26 23:20] LABS: INR 1.01; PROTHROMBIN TIME 13.8 seconds (11.9-14.5)
[2019-05-26 23:21] LABS: PARTIAL THROMBOPLASTIN TIME 35.7 seconds (23.8-35.5)
[2019-05-26 23:30] LABS: ALBUMIN/GLOBULIN RATIO 0.8 (0.8-2.0); ANION GAP 18.4 mmol/L (8-16); CREATININE, SERUM 6.85 mg/dL (0.57-1.11); POTASSIUM 5.4 mmol/L (3.5-5.1)
[2019-05-26 23:32] LABS: CALCIUM 9.3 mg/dL (8.4-10.2)
[2019-05-26 23:38] LABS: CREATINE KINASE MB 0.9 ng/mL (0-5.0)
--- NOTE | 2019-05-26 23:40 | Diagnostic Imaging Report ---
EXAMINATION: CHEST SINGLE (PORTABLE) INDICATION: Chest pain COMPARISON: Chest radiograph 02/15/2019; abdominal CT 02/15/2019 FINDINGS: AP view TUBES and LINES: Stable right IJ central venous catheter with tip in the right atrium.. LUNGS: Lungs are well inflated. Faint increased opacification of the lung bases. Pulmonary vascular prominence. Increased pulmonary interstitial markings. A few calcified granulomas. PLEURA: No pleural effusion or pneumothorax. HEART AND MEDIASTINUM: Cardiac size is mildly enlarged. BONES AND SOFT TISSUES: No acute osseous lesion. Soft tissues are unremarkable. UPPER ABDOMEN: No free air under the diaphragm. IMPRESSION: Mild cardiomegaly and mild pulmonary interstitial edema and question trace bilateral pleural effusions.. Signed by: Abdifatah Sewell DO on 05/26/2019 11:37 PM
[2019-05-26] MEDS ORDERED: SOD POLYSTYRENE SULFONATE SUSP 15 GM/60 ML BTL PO ONE (23:45)
[2019-05-26 23:50] VITALS: BP 165/79
== END 2019-05-27 | disposition home or self-care (01) ==
LOC: ER 22:07
DX: R07.89 Other chest pain (principal); I13.2 Hypertensive heart and chronic kidney disease with heart failure and with stage 5 chronic kidney disease, or end stage renal disease; N18.6 End stage renal disease; I50.9 Heart failure, unspecified; Z99.2 Dependence on renal dialysis; E87.5 Hyperkalemia; E78.5 Hyperlipidemia, unspecified; Z93.3 Colostomy status
CPT/HCPCS: 36415; 71045; 80053; 82550; 82553; 84484; 85025; 85610; 85730; 93005; 99283

== ENCOUNTER → 2019-06-25 | Day surgery (SDC) | payer MEDICARE ==
--- NOTE | 2019-06-23 12:13 | Diagnostic Imaging Report ---
EXAM: CHEST 2 VIEWS DATE: 06/23/2019 11:18 AM INDICATION: Preoperative evaluation COMPARISON: 05/26/2019 FINDINGS: Right IJ tunnel catheter again identified in stable position. The trachea is midline. There has been interval resolution of increased interstitial opacities since the prior examination. There is no evidence for new large focal consolidation, pneumothorax, or significant pleural effusion. Stable appearing calcified granulomas again noted. The cardiac silhouette appears mildly enlarged, unchanged. Mediastinal contours are unremarkable. No acute osseous abnormalities identified. IMPRESSION: No acute cardiopulmonary process identified. Signed by: Dr. Compa Hernadez MD on 06/23/2019 12:09 PM
[~2019-06-25] MED LIST changes: +BUPIVACAINE HCL 0.5% 10ML MPF VIAL INJ ONE; +CEFAZOLIN SOD 1 GM/NS 50ML 50 ML IV ONE; +DEXAMETHASONE SOD PHOS INJ 4 MG/ML VIAL ONE; +FENTANYL CITRATE/PF 100MCG/2 ML INJ ONE; +LIDOCAINE 1% W/EPINEPHRINE 20 ML VIAL ONE; +LIDOCAINE HCL 2% LOCAL INJ 5 ML SDV VIAL INJ ONE; +MIDAZOLAM HCL 2 MG/2 ML VIAL ONE; +MUPIROCIN 2% OINT 22 GM TUBE ONE; +ONDANSETRON HCL INJ 2MG/ML 2ML 2 MG/ML VIAL ONE; +PROPOFOL IV EMULSION 10 MG/ML 20 ML VIAL ONE; +SEVOFLURANE INHAL SOLN 250 ML PEN BTL ONE; +SODIUM CHLORIDE 0.9% 500ML 500 ML ONE
[2019-06-25 06:21] LABS: BASOPHILS # (AUTO) 0.1 (0.0-0.1); BASOPHILS % 0.9 % (0.0-1.0); EOSINOPHILS % 16.3 % (0.0-6.0); HEMATOCRIT 37.3 % (34.2-44.1); HEMOGLOBIN 11.8 g/dL (12.0-16.0); LYMPHOCYTES # (AUTO) 1.1 (1.0-3.2); LYMPHOCYTES % 18.4 % (18.0-39.1); MEAN CORPUSCULAR HEMOGLOBIN 29.7 pg (28-32); MEAN CORPUSCULAR HGB CONC 31.6 g/dL (31-35); MONOCYTES # (AUTO) 0.6 (0.2-0.8); MONOCYTES % 9.8 % (4.4-11.3); NEUTROPHILS # (AUTO) 3.2 (2.1-6.9); NEUTROPHILS % 54.3 % (38.7-80.0); PLATELET COUNT 166 x10e3/uL (140-360); RED BLOOD COUNT 3.97 x10e6/uL (3.6-5.1); RED CELL DISTRIBUTION WIDTH 15.1 % (11.7-14.4)
[2019-06-25 06:43] LABS: INR 0.86; PROTHROMBIN TIME 12.2 seconds (11.9-14.5)
[2019-06-25 06:44] LABS: PARTIAL THROMBOPLASTIN TIME 24.3 seconds (23.8-35.5)
[2019-06-25 06:48] LABS: ANION GAP 17.4 mmol/L (8-16); CALCIUM 9.8 mg/dL (8.4-10.2); CREATININE, SERUM 4.69 mg/dL (0.57-1.11); POTASSIUM 5.4 mmol/L (3.5-5.1)
[2019-06-25 06:52] LABS: PLATELET ESTIMATE ADEQUATE; PLATELET MORPHOLOGY COMMENT NORMAL
[2019-06-25 08:20] VITALS: BP 154/76
--- NOTE | 2019-06-25 16:39 | Operative Report ---
DATE OF PROCEDURE: 06/25/2019 SURGEON: Kevin Valencia MD PREOPERATIVE DIAGNOSIS: Stenosing tenosynovitis of right ring finger. POSTOPERATIVE DIAGNOSIS: Stenosing tenosynovitis of right ring finger. OPERATION PERFORMED: Tenovaginotomy of right ring finger. ANESTHESIA: General. HISTORY: The patient is a 68-year-old right hand-dominant female who presents with stenosing tenosynovitis of the right ring finger that is recalcitrant to conservative treatment. The risks, benefits, and alternatives of treatment were discussed with the patient and they are prepared to undergo the procedure as outlined. DESCRIPTION OF PROCEDURE: The patient was brought to the operating theater. After the induction of adequate general/regional anesthesia, the patient was prepped and draped in a supine position. A time out was performed by the entire operating room team. An oblique incision was marked out over the A1 zaheer of the right ring finger. The upper extremity was exsanguinated, and a tourniquet was inflated to a pressure of 250 mmHg. The incision was made through the skin and subcutaneous tissues. All venous tributaries were controlled with bipolar cautery. The incision was deepened through the palmar tissues. The neurovascular bundles on the radial and ulnar sides of the flexor tendon sheath were identified and retracted away from the flexor tendon sheath and preserved. The A1 zaheer of the affected finger was identified and incised longitudinally, taking care to protect and preserve the flexor tendons within the sheath. After the complete length of the zaheer had been transected, the tendons were placed in a range of motion. There was noted to be good motion without any locking. The wound was then copiously irrigated with bacteriostatic saline and closed with 5-0 nylon in an interrupted horizontal mattress fashion. A Marcaine field block was performed at the operative site. The tourniquet was deflated. All the fingers pinked up nicely. A sterile bulky conforming bandage was applied to the hand, and the patient was returned to the recovery room in satisfactory condition and was discharged with a postoperative instruction sheet as well as a followup appointment. Kevin Valencia MD ER/MODL /[id number]
== END | disposition home or self-care (01) ==
LOC: OR 05:00
PROVIDERS: ATTEND Plastic Surgery
DX: M65.341 Trigger finger, right ring finger (principal); J45.909 Unspecified asthma, uncomplicated; I12.0 Hypertensive chronic kidney disease with stage 5 chronic kidney disease or end stage renal disease; N18.6 End stage renal disease; I35.1 Nonrheumatic aortic (valve) insufficiency; Z99.2 Dependence on renal dialysis; Z01.818 Encounter for other preprocedural examination
CPT/HCPCS: 26055; 36415; 71046; 80048; 85025; 85610; 85730; J0690; J1100; J2001; J2250; J2405; J2704; J3010; J7040

== ENCOUNTER → 2019-11-26 | Outpatient (CLI) | payer MEDICARE ==
[~2019-11-26] MED LIST changes: -BUPIVACAINE HCL 0.5% 10ML MPF VIAL INJ ONE; -CEFAZOLIN SOD 1 GM/NS 50ML 50 ML IV ONE; -DEXAMETHASONE SOD PHOS INJ 4 MG/ML VIAL ONE; -FENTANYL CITRATE/PF 100MCG/2 ML INJ ONE; +IOPAMIDOL 300MG/ML 100 ML INFUS..BTL IV ONE; +IOPAMIDOL 370 MG/ML 200 ML INFUS..BTL INJ ONE; -LIDOCAINE 1% W/EPINEPHRINE 20 ML VIAL ONE; -LIDOCAINE HCL 2% LOCAL INJ 5 ML SDV VIAL INJ ONE; -MIDAZOLAM HCL 2 MG/2 ML VIAL ONE; -MUPIROCIN 2% OINT 22 GM TUBE ONE; -ONDANSETRON HCL INJ 2MG/ML 2ML 2 MG/ML VIAL ONE; -PROPOFOL IV EMULSION 10 MG/ML 20 ML VIAL ONE; -SEVOFLURANE INHAL SOLN 250 ML PEN BTL ONE; +SODIUM CHLORIDE 0.9% 100 ML ONE; -SODIUM CHLORIDE 0.9% 500ML 500 ML ONE
--- NOTE | 2019-11-26 14:35 | Diagnostic Imaging Report ---
CT angiography of the thoracic aorta COMPARISON: None INDICATION: There is a clinical concern of ascending aortic aneurysm. This study is performed in an attempt to avoid an invasive procedure. TECHNIQUE: Helically acquired axial CT images of the chest were obtained during the intravenous administration of contrast. Multi-planar 3-D volume-rendering reconstruction was performed using an independent workstation. Images were also reformatted into sagittal and coronal planes. This exam was performed according to our departmental dose-optimization program, which includes automated exposure control, adjustment of the mA and/or kV according to patient size and/or use of iterative reconstruction technique. Dose modulation, iterative reconstruction, and/or weight based adjustment of the mA/kV was utilized to reduce the radiation dose to as low as reasonably achievable. FINDINGS: VASCULAR:- The central pulmonary arteries are normal in caliber. The heart is mildly enlarged. The pericardium appears unremarkable. The coronary artery origins are normal and mild coronary calcifications are seen. The thoracic aorta is normal in course, contour, and caliber. There is no evidence of acute aortic pathology, specifically, there is no dissection, intramural hematoma, or contained rupture. The arch vessel branching pattern is normal and the visualized arch vessels are widely patent proximally. Quantitative dimensions of the aorta are as follows: 3.4 cm at the proximal ascending thoracic aorta; 3.6 cm at the mid ascending aorta; 3.6 cm at the distal ascending aorta; 2.7 cm at the mid transverse arch; 2.4 at the proximal descending aorta; 2.4 cm at the mid descending aorta; 2.1 cm at the diaphragmatic hiatus. In the abdomen, the aorta measures 2.3 cm at the mesenteric segment. A HeRO graft is in place which terminates in the superior atrium. NON-VASCULAR:- The visualized thyroid gland appears unremarkable. The chest wall and mediastinum appear normal. No significant adenopathy is identified. In the lung windows, no obvious endobronchial lesion is seen and no pleural effusion is identified. No suspicious pulmonary nodule is seen. Mild interstitial edema is present. A calcified granuloma is identified in the right upper lobe. No acute osseous pathology is seen. CONCLUSIONS: The thoracic aorta is normal in course, contour, and caliber. There is no evidence of acute aortic pathology, specifically, there is no dissection, intramural hematoma, or contained rupture. Quantitative dimension of the aorta are as described above. Signed by: Steve Mosquera MD on 11/26/2019 2:32 PM
== END ==
LOC: CT 08:03
PROVIDERS: ATTEND Internal Medicine
DX: I71.2 Thoracic aortic aneurysm, without rupture (principal)
CPT/HCPCS: 71275; J7050; Q9967

== ENCOUNTER 2020-06-27 00:52 | Observation (INO) | payer MEDICARE ==
[2020-06-27] VITALS (8 sets, daily range): BP systolic 112–135; BP diastolic 50–70
[~2020-06-27] VITALS: Ht 152.4 cm; Wt 85.3 kg
[~2020-06-27 00:52] MED LIST changes: -IOPAMIDOL 300MG/ML 100 ML INFUS..BTL IV ONE; -IOPAMIDOL 370 MG/ML 200 ML INFUS..BTL INJ ONE; -SODIUM CHLORIDE 0.9% 100 ML ONE
[2020-06-27 01:04] LABS: BASOPHILS % 0.5 % (0.0-1.0); EOSINOPHILS # (AUTO) 0.4 (0.0-0.4); EOSINOPHILS % 5.1 % (0.0-6.0); HEMATOCRIT 32.1 % (34.2-44.1); HEMOGLOBIN 10.5 g/dL (12.0-16.0); LYMPHOCYTES # (AUTO) 1.4 (1.0-3.2); LYMPHOCYTES % 17.5 % (18.0-39.1); MEAN CORPUSCULAR HEMOGLOBIN 32.4 pg (28-32); MEAN CORPUSCULAR HGB CONC 32.7 g/dL (31-35); MEAN CORPUSCULAR VOLUME 99.1 fL (81-99); MONOCYTES # (AUTO) 0.5 (0.2-0.8); MONOCYTES % 6.9 % (4.4-11.3); NEUTROPHILS # (AUTO) 5.4 (2.1-6.9); NEUTROPHILS % 69.6 % (38.7-80.0); PLATELET COUNT 150 x10e3/uL (140-360); RED BLOOD COUNT 3.24 x10e6/uL (3.6-5.1); RED CELL DISTRIBUTION WIDTH 12.8 % (11.7-14.4)
[2020-06-27 01:11] LABS: INR 0.89; PROTHROMBIN TIME 12.5 seconds (11.9-14.5)
[2020-06-27 01:22] LABS: ALBUMIN 3.7 g/dL (3.5-5.0); ALBUMIN/GLOBULIN RATIO 1.3 (0.8-2.0); ANION GAP 19.8 mmol/L (8-16); CALCIUM 9.7 mg/dL (8.4-10.2); CREATININE, SERUM 8.68 mg/dL (0.57-1.11); POTASSIUM 4.8 mmol/L (3.5-5.1)
[2020-06-27] MEDS ORDERED: MECLIZINE HCL 12.5 MG TAB PO STA (01:46)
[2020-06-27] MEDS ORDERED: MECLIZINE HCL 12.5 MG TAB ONE (01:55)
[2020-06-27 16:18] LABS: CHOL/HDL RATIO 3.7 (3.0-3.6)
[2020-06-27] MEDS ORDERED: CLOPIDOGREL75 MG PO (16:19)
[2020-06-27] MEDS ORDERED: MECLIZINE HCL12.5 MG PO (16:20)
[2020-06-27] MEDS ORDERED: METOPROLOL SUCC25 MG (16:25)
[2020-08-29] MEDS ORDERED: SENSIPAR30 MG PO (11:49)
[2020-08-29] MEDS ORDERED: ULTRAM50 MG PO (11:49)
[2020-08-29] MEDS ORDERED: AURYXIA210 MG PO (11:49)
[2020-08-29] MEDS ORDERED: RENAGEL800 MG PO (11:49)
== END 2020-06-27 20:23 | disposition home or self-care (01) ==
LOC: ER 01:05 → ERHOLD 02:11 → MED/SURG3 02:50 → OBSVTOIN 08:47 → INTOOBSV 08:47
PROVIDERS: ADMIT Internal Medicine; ATTEND Internal Medicine
DX: R55 Syncope and collapse (principal); I13.2 Hypertensive heart and chronic kidney disease with heart failure and with stage 5 chronic kidney disease, or end stage renal disease; N18.6 End stage renal disease; Z99.2 Dependence on renal dialysis; E78.5 Hyperlipidemia, unspecified; Z87.891 Personal history of nicotine dependence; R42 Dizziness and giddiness; I50.33 Acute on chronic diastolic (congestive) heart failure; E66.9 Obesity, unspecified; Z68.36 Body mass index [BMI] 36.0-36.9, adult; I35.0 Nonrheumatic aortic (valve) stenosis
CPT/HCPCS: 36415; 70450; 71045; 80053; 80061; 83880; 84484; 85025; 85610; 90935; 93005; 93306; 99284; G0378; J8597; U0002; 90962

== ENCOUNTER 2020-06-28 01:52 | Emergency (ER) | payer MEDICARE ==
[~2020-06-28] VITALS: Ht 152.4 cm; Wt 85.3 kg
[~2020-06-28 01:52] MED LIST changes: +CLOPIDOGREL75 MG PO; +MECLIZINE HCL12.5 MG PO; +METOPROLOL SUCC25 MG
[2020-06-28] MEDS ORDERED: MECLIZINE HCL 12.5 MG TAB PO ONE (02:15)
[2020-06-28] MEDS ORDERED: MECLIZINE HCL 12.5 MG TAB ONE (02:15)
--- NOTE | 2020-06-28 02:15 | Emergency Department Note ---
History of Present Illnes History of Present Illness Chief Complaint: Neurological History of Present Illness This is a 69 year old female Chief Complaint Comment Patient c/o dizz iness that started again at approx 0100 this morning. Patient was admitted here yesterday and did not have MRI or MRA becuase she was claustrophobic so patient was discharged home. Patient also states she was unable to get prescription filled because pharmacy was closed when she was discharged yesterday. Patient c/o dizziness. Historian: Patient Arrival Mode: Car Art Supervisor Required: Yes Onset (how long ago): hour(s) (1) Location: Head Quality: Dizzy Radiation: Reports non-radiation Severity: mild Onset quality: unable to specify Duration (how long): hour(s) (1) Timing of current episode: constant Progression: worsening Chronicity: recurrent Context: Denies recent illness, Denies recent surgery Relieving factors: none Exacerbating factors: none Associated symptoms: Reports denies other symptoms Treatments prior to arrival: none Past Medical/Family History Physician Review I have reviewed the patient's past medical and family history. Any updates have been documented here. Past Medical History Recent Fever: No Clinical Suspicion of Infectio: No New/Unexplained Change in Ment: No Past Medical History: Hypertension, CHF, ESRD, Hemodyalisis, Hyperlipedemia, Chronic Kidney Disease Other Medical History: DIVERTICULITIS CARDIAC WINDOW - PERICARDIAL WINDOW Past Surgical History: Hysterectomy, Other Surgery: PERFORATED COLON - COLON RESECTION WITH COLOSTOMY AND HARTMANNS POUCH PLACED. (R) TEMPORARY HD CATH PLACEMENT 06/02/2018 DIALYSIS GRAFT RT ARM DIALYSIS FISTULA LT ARM X5 Other Last Tetanus: UTD Review of Systems Review of Systems Constitutional: Reports no symptoms EENTM: Reports no symptoms Cardiovascular: Reports no symptoms Respiratory: Reports no symptoms Gastrointestinal: Reports no symptoms Genitourinary: Reports no symptoms Musculoskeletal: Reports no symptoms Integumentary: Reports no symptoms Neurological: Reports other (Dizzy) Psychological: Reports no symptoms Endocrine: Reports no symptoms Hematological/Lymphatic: Reports no symptoms Physical Exam Related Data Allergies: Coded Allergies: No Known Allergies (Unverified , 02/15/19) Triage Vital Signs Vital Signs Date Time Temp Pulse Resp B/P (MAP) Pulse Ox O2 Delivery O2 Flow Rate FiO2 06/28/20 02:02 98.8 78 20 132/62 100 Room Air Vital signs reviewed: Yes Physical Exam CONSTITUTIONAL Constitutional: Present well-developed, Present well-nourished HENT HENT: Present normocephalic, Present atraumatic, Present oropharynx clear/moist, Present nose normal HENT L/R: Present left ext ear normal, Present right ext ear normal EYES Eyes: Reports PERRL, Reports conjunctivae normal NECK Neck: Present ROM normal PULMONARY Pulmonary: Present effort normal, Present breath sounds normal CARDIOVASCULAR Cardiovascular: Present regular rhythm, Present heart sounds normal, Present capillary refill normal, Present normal rate GASTROINTESTINAL Abdominal: Present soft, Present nontender, Present bowel sounds normal GENITOURINARY Genitourinary: Present exam deferred SKIN Skin: Present warm, Present dry MUSCULOSKELETAL Musculoskeletal: Present ROM normal NEUROLOGICAL Neurological: Present alert, Present oriented x 3, Present no gross motor or sensory deficits; Absent cranial nerve deficit, Absent weakness PSYCHOLOGICAL Psychological: Present mood/affect normal, Present judgement normal Assessment & Plan Medical Decision Making MDM 69-year-old female presents for dizziness. This is the second time she has been to the emergency Department last 2 days. She is admitted yesterday and refused MRI she is claustrophobic. She is discharged on meclizine but has not filled her prescription. Examination is largely unremarkable and appears baseline compared to yesterday. I discussed options with her and offered transfer to [facility] as we are full here which patient declines. Should prefer to be given meclizine and discharged home. She was given meclizine and is stable for discharge. Reassessment Reassessment time: 02:15 Reassessment NAD Assessment & Plan Final Impression: (1) Dizziness Depart Disposition: HOME, SELF-CARE Last Vital Signs Date Time Temp Pulse Resp B/P (MAP) Pulse Ox O2 Delivery O2 Flow Rate FiO2 06/28/20 02:02 98.8 78 20 132/62 100 Room Air Home Meds Reported Medications Metoprolol Succinate (METOPROLOL SUCCINATE) 25 Mg Tab.er.24h, MG DAILY 06/27/20 Meclizine Hcl (MECLIZINE HCL) 12.5 Mg Tablet, 25 MG PO Q6H PRN for DIZZINESS, TAB 06/27/20 Clopidogrel Bisulfate (CLOPIDOGREL) 75 Mg Tablet, 75 MG PO DAILY, #30 TAB 06/27/20 Discontinued Reported Medications Ondansetron Hcl* (ZOFRAN*) 4 Mg Tablet, 4 MG PO PRN for NAUSEA, #20 2 Refills 02/16/19 Medications in the ED Meclizine HCl 25 mg ONCE ONCE PO Last administered on 06/28/20at 02:10; Admin Dose 25 MG; Start 06/28/20 at 02:15; Stop 06/28/20 at 02:16; Status UNV BASIL MOON MD Jun 28, 2020 02:15
== END 2020-06-28 02:50 | disposition home or self-care (01) ==
LOC: ER 02:07
DX: R42 Dizziness and giddiness (principal); I12.0 Hypertensive chronic kidney disease with stage 5 chronic kidney disease or end stage renal disease; N18.6 End stage renal disease; N18.9 Chronic kidney disease, unspecified; Z99.2 Dependence on renal dialysis; Z87.19 Personal history of other diseases of the digestive system
CPT/HCPCS: 99282; J8597

== ENCOUNTER → 2020-08-30 | Day surgery (SDC) | payer MEDICARE ==
[2020-08-28 11:57] LABS: BASOPHILS % 0.4 % (0.0-1.0); EOSINOPHILS # (AUTO) 0.5 (0.0-0.4); EOSINOPHILS % 6.9 % (0.0-6.0); HEMATOCRIT 30.8 % (34.2-44.1); HEMOGLOBIN 9.8 g/dL (12.0-16.0); LYMPHOCYTES # (AUTO) 0.9 (1.0-3.2); LYMPHOCYTES % 11.9 % (18.0-39.1); MEAN CORPUSCULAR HEMOGLOBIN 32.3 pg (28-32); MEAN CORPUSCULAR HGB CONC 31.8 g/dL (31-35); MEAN CORPUSCULAR VOLUME 101.7 fL (81-99); MONOCYTES # (AUTO) 0.6 (0.2-0.8); MONOCYTES % 7.6 % (4.4-11.3); NEUTROPHILS # (AUTO) 5.6 (2.1-6.9); NEUTROPHILS % 72.9 % (38.7-80.0); PLATELET COUNT 188 x10e3/uL (140-360); RED BLOOD COUNT 3.03 x10e6/uL (3.6-5.1); RED CELL DISTRIBUTION WIDTH 13.8 % (11.7-14.4)
[2020-08-28 12:07] LABS: INR 0.98; PROTHROMBIN TIME 13.5 seconds (11.9-14.5)
[2020-08-28 12:24] LABS: ALBUMIN 3.1 g/dL (3.5-5.0); ALBUMIN/GLOBULIN RATIO 0.8 (0.8-2.0); ANION GAP 22.3 mmol/L (8-16); CALCIUM 8.7 mg/dL (8.4-10.2); CREATININE, SERUM 7.84 mg/dL (0.57-1.11); POTASSIUM 5.3 mmol/L (3.5-5.1)
[2020-08-30] VITALS (15 sets, daily range): BP systolic 99–166; BP diastolic 53–87
[~2020-08-30] VITALS: Ht 144.8 cm; Wt 77.1 kg
[~2020-08-30] MED LIST changes: +ATROPINE SULFATE 0.1 MG/ML 10ML SYR ONE; +AURYXIA210 MG PO; +DIPHENHYDRAMINE HCL 25 MG CAP ONE; +FAMOTIDINE 20 MG/2 ML VIAL IV ONE; +FENTANYL CITRATE/PF 100MCG/2 ML INJ ONE; +HEPARIN SOD (PORCINE) 1000 UNIT/ML 30ML ONE; +HEPARIN SOD/SOD CHLORIDE 2,000 ML ONE; +IOPAMIDOL 370 MG/ML 200 ML INFUS..BTL INJ ONE; +LIDOCAINE HCL 2% LOCAL 20 ML VIAL ONE; +METHYLPREDNISOLONE SOD SUCC 125 MG/2ML VIAL ONE; +MIDAZOLAM HCL 2 MG/2 ML VIAL ONE; +NITROGLYCERIN/D5W 200 MCG/ML 250 ML ONE; +RENAGEL800 MG PO; +SENSIPAR30 MG PO; +SODIUM CHLORIDE 0.9% 500ML 500 ML ONE; +ULTRAM50 MG PO
== END | disposition home or self-care (01) ==
LOC: CATH LAB 06:51
PROVIDERS: ATTEND Internal Medicine
DX: I25.10 Atherosclerotic heart disease of native coronary artery without angina pectoris (principal); R94.39 Abnormal result of other cardiovascular function study; I35.0 Nonrheumatic aortic (valve) stenosis; I44.2 Atrioventricular block, complete; I71.2 Thoracic aortic aneurysm, without rupture; I51.3 Intracardiac thrombosis, not elsewhere classified; I35.1 Nonrheumatic aortic (valve) insufficiency; I10 Essential (primary) hypertension; J45.909 Unspecified asthma, uncomplicated; Z01.812 Encounter for preprocedural laboratory examination; Z20.828 Contact with and (suspected) exposure to other viral communicable diseases; Z79.02 Long term (current) use of antithrombotics/antiplatelets; Z68.34 Body mass index [BMI] 34.0-34.9, adult; Z82.49 Family history of ischemic heart disease and other diseases of the circulatory system
CPT/HCPCS: 36415; 76937; 80053; 85025; 85610; 93458; 99152; 99153; C1760; C1766; C1769; J1644; J2001; J2250; J2930; J3010; J7040; Q9967; U0002

== ENCOUNTER 2021-01-25 09:29 | Emergency (ER) | payer MEDICARE ==
[~2021-01-25] VITALS: Ht 144.8 cm; Wt 77.1 kg
[~2021-01-25 09:29] MED LIST changes: -ATROPINE SULFATE 0.1 MG/ML 10ML SYR ONE; -DIPHENHYDRAMINE HCL 25 MG CAP ONE; -FAMOTIDINE 20 MG/2 ML VIAL IV ONE; -FENTANYL CITRATE/PF 100MCG/2 ML INJ ONE; -HEPARIN SOD (PORCINE) 1000 UNIT/ML 30ML ONE; -HEPARIN SOD/SOD CHLORIDE 2,000 ML ONE; -IOPAMIDOL 370 MG/ML 200 ML INFUS..BTL INJ ONE; -LIDOCAINE HCL 2% LOCAL 20 ML VIAL ONE; -METHYLPREDNISOLONE SOD SUCC 125 MG/2ML VIAL ONE; -MIDAZOLAM HCL 2 MG/2 ML VIAL ONE; -NITROGLYCERIN/D5W 200 MCG/ML 250 ML ONE; -SODIUM CHLORIDE 0.9% 500ML 500 ML ONE
== END 2021-01-25 10:30 | disposition home or self-care (01) ==
LOC: ER 10:26
DX: R03.1 Nonspecific low blood-pressure reading (principal); I12.0 Hypertensive chronic kidney disease with stage 5 chronic kidney disease or end stage renal disease; N18.6 End stage renal disease; Z99.2 Dependence on renal dialysis; I50.9 Heart failure, unspecified; E78.5 Hyperlipidemia, unspecified; Z98.0 Intestinal bypass and anastomosis status
CPT/HCPCS: 99282

== ENCOUNTER 2021-10-06 13:51 | Emergency (ER) | payer MEDICARE, OTHER ==
[~2021-10-06] VITALS: Ht 144.8 cm; Wt 77.1 kg
[~2021-10-06 13:51] MED LIST changes: +LEVOCETIRIZINE D5 MG PO; +MINOCYCLINE HCL50 MG PO; +TYLENOL # 31 EA PO
[2021-10-06] MEDS ORDERED: ONDANSETRON HCL 4 MG ORAL DISINTEGRATING TAB PO ONE (14:00)
[2021-10-06] MEDS ORDERED: CALCIUM GLUCONATE 10% INJ 4.65 MEQ in SODIUM CHLORIDE 0.9% 50ML 50 ML IV ONE (14:15)
[2021-10-06 14:23] LABS: BASOPHILS # (AUTO) 0.1 (0.0-0.1); EOSINOPHILS # (AUTO) 0.2 (0.0-0.4); EOSINOPHILS % 3.5 % (0.0-6.0); HEMATOCRIT 24.5 % (34.2-44.1); HEMOGLOBIN 7.6 g/dL (12.0-16.0); LYMPHOCYTES # (AUTO) 1.5 (1.0-3.2); MEAN CORPUSCULAR HEMOGLOBIN 32.1 pg (28-32); MEAN CORPUSCULAR VOLUME 103.4 fL (81-99); MONOCYTES # (AUTO) 0.5 (0.2-0.8); MONOCYTES % 7.6 % (4.4-11.3); NEUTROPHILS # (AUTO) 4.6 (2.1-6.9); NEUTROPHILS % 65.5 % (38.7-80.0); PLATELET COUNT 284 x10e3/uL (140-360); RED BLOOD COUNT 2.37 x10e6/uL (3.6-5.1); RED CELL DISTRIBUTION WIDTH 13.9 % (11.7-14.4)
[2021-10-06 14:36] LABS: ALBUMIN 3.1 g/dL (3.5-5.0); ALBUMIN/GLOBULIN RATIO 1.1 (0.8-2.0); CALCIUM 9.2 mg/dL (8.4-10.2); CREATININE, SERUM 7.97 mg/dL (0.57-1.11)
[2021-10-06] MEDS ORDERED: ALBUMIN 25% 12.5GM 0.25 GM/ML BTL IV PRN (17:00)
[2021-10-06] MEDS ORDERED: MIDODRINE 2.5 MG TAB PO ONE (17:45)
[2021-10-06 20:50] LABS: ANION GAP 20.7 mmol/L (8-16); CALCIUM 8.8 mg/dL (8.4-10.2); POTASSIUM 4.7 mmol/L (3.5-5.1)
[2021-10-06 20:52] LABS: CREATININE, SERUM 3.93 mg/dL (0.57-1.11)
[2021-10-06 20:57] LABS: CREATINE KINASE MB 2.3 ng/mL (0-5.0)
[2021-10-06 21:48] VITALS: BP 98/56
[2021-10-07] MEDS ORDERED: MECLIZINE HCL 12.5 MG TAB PO ONE (09:00)
== END 2021-10-06 21:45 | disposition home or self-care (01) ==
LOC: ER 13:55
DX: I13.2 Hypertensive heart and chronic kidney disease with heart failure and with stage 5 chronic kidney disease, or end stage renal disease (principal); N18.6 End stage renal disease; I50.9 Heart failure, unspecified; R94.31 Abnormal electrocardiogram [ECG] [EKG]; R42 Dizziness and giddiness; Z99.2 Dependence on renal dialysis; Z91.041 Radiographic dye allergy status; Z20.822 Contact with and (suspected) exposure to COVID-19; Z93.3 Colostomy status
CPT/HCPCS: 36415; 70450; 71045; 80048; 80053; 82550; 82553; 83735; 84484; 85025; 93005; 99284; J0610; J8597; Q0162; U0002

== ENCOUNTER 2022-08-30 15:53 | Emergency (ER) | payer MEDICARE ==
[~2022-08-30] VITALS: Ht 144.8 cm; Wt 66.7 kg
[2022-08-30 16:49] LABS: BASOPHILS % 0.6 % (0.0-1.0); EOSINOPHILS # (AUTO) 0.2 (0.0-0.4); EOSINOPHILS % 3.1 % (0.0-6.0); HEMATOCRIT 32.3 % (34.2-44.1); HEMOGLOBIN 10.1 g/dL (12.0-16.0); LYMPHOCYTES # (AUTO) 0.4 (1.0-3.2); LYMPHOCYTES % 8.2 % (18.0-39.1); MEAN CORPUSCULAR HEMOGLOBIN 32.4 pg (28-32); MEAN CORPUSCULAR HGB CONC 31.3 g/dL (31-35); MEAN CORPUSCULAR VOLUME 103.5 fL (81-99); MONOCYTES # (AUTO) 0.4 (0.2-0.8); MONOCYTES % 7.5 % (4.4-11.3); NEUTROPHILS # (AUTO) 4.2 (2.1-6.9); NEUTROPHILS % 80.2 % (38.7-80.0); PLATELET COUNT 147 x10e3/uL (140-360); RED BLOOD COUNT 3.12 x10e6/uL (3.6-5.1); RED CELL DISTRIBUTION WIDTH 18.6 % (11.7-14.4)
[2022-08-30 17:07] LABS: ALBUMIN 3.2 g/dL (3.5-5.0); ALBUMIN/GLOBULIN RATIO 1.2 (0.8-2.0); ALKALINE PHOSPHATASE 118 IU/L (40-150); ANION GAP 17.7 mmol/L (8-16); BLOOD UREA NITROGEN 16 mg/dL (7-26); BUN/CREATININE RATIO 5 (6-25); CALCIUM 9.3 mg/dL (8.4-10.2); CARBON DIOXIDE 28 mmol/L (22-29); CHLORIDE 97 mmol/L (98-107); CREATINE KINASE 23 IU/L (29-168); CREATININE, SERUM 3.03 mg/dL (0.57-1.11); GLUCOSE 128 mg/dL (74-118); POTASSIUM 3.7 mmol/L (3.5-5.1); SODIUM 139 mmol/L (136-145)
[2022-08-30 17:16] LABS: ALANINE AMINOTRANSFERASE < 6 IU/L (0-55)
[2022-08-30] MEDS ORDERED: SODIUM CHLORIDE 0.9% 500ML 500 ML IV ONE (17:30)
[2022-08-30] MEDS ORDERED: MIDODRINE 2.5 MG TAB PO ONE (17:30)
[2022-08-30] MEDS ORDERED: SODIUM CHLORIDE 0.9% 500ML 500 ML ONE (17:39)
[2022-08-30 21:10] VITALS: BP 100/65
== END 2022-08-30 21:14 | disposition other institution (70) ==
LOC: ER 16:12
DX: R10.31 Right lower quadrant pain (principal); I12.0 Hypertensive chronic kidney disease with stage 5 chronic kidney disease or end stage renal disease; N18.6 End stage renal disease; Z99.2 Dependence on renal dialysis; I50.9 Heart failure, unspecified; E78.5 Hyperlipidemia, unspecified; Z20.822 Contact with and (suspected) exposure to COVID-19; R94.31 Abnormal electrocardiogram [ECG] [EKG]; Z87.19 Personal history of other diseases of the digestive system
CPT/HCPCS: 36415; 71045; 74176; 80053; 82550; 82553; 83605; 84484; 85025; 86850; 86900; 87040; 93005; 99284; J7040; U0002